=== PATIENT | male | born 1960 | race Caucasian/White ===

== ENCOUNTER 2018-01-23 13:51 | Inpatient (IN) ==
--- NOTE | 2018-01-23 21:34 | P.CONOP ---
[facility] Orthopedics Consult Note - [facility] Consult date: 01/23/18 Requesting physician: Eric Matthew Chief complaint: compartment syndrome left thigh Narrative: This 57-year-old male is referred from [facility] emergency department for evaluation of his left thigh. The patient is on Coumadin therapy for a heart valve. His history is somewhat difficult to obtain as far as his medications etc. and there is limited record available for review. There are several family members at the bedside. The patient apparently fell 3 days ago injuring his thigh region. He had mild to moderate discomfort at that time. His pain increased last night and this morning. He presented to the emergency department there was noted to have lateral compartment swelling. Apparently a compartment pressure measurement was made which was elevated. [facility] was [facility] for further evaluation and management. Patient denies pain at rest. He has pain only when trying to elevate the leg or extend his knee. He denies numbness or tingling. Review of Systems All other systems reviewed negative except as stated in [facility] - History History Provided By: Patient - Medical History Medical History: Medical History (Last Reviewed 01/23/18 @ 21:23 by Elias Morocho MD) Depression Diabetes High cholesterol Hypertension - Surgical History Surgical History: Surgical History (Last Reviewed 01/23/18 @ 21:23 by Elias Morocho MD) Aortic valve replaced - Tobacco History Second Hand Smoke Exposure: No Smoking Status: Never smoker - Alcohol History How Often Do You Have a Drink Containing Alcohol: Never - Substance Use History Substance History: No History of Abuse Medications and Allergies Allergies Allergy/AdvReac Type Severity Reaction Status Date / Time No Known Allergies Allergy Unverified 01/23/18 14:30 Home Medications Medication Instructions Recorded Confirmed Type aspirin [Aspir-Low] 81 mg PO DAILY 01/23/18 01/23/18 History atorvastatin 40 mg PO DAILY 01/23/18 01/23/18 History escitalopram oxalate [Lexapro] 5 mg PO DAILY 01/23/18 01/23/18 History liraglutide [Victoza 2-Derrick] 0.6 mg SUB-Q DAILY 01/23/18 01/23/18 History warfarin [Coumadin] 7.5 mg PO Q OTHER DAY 01/23/18 01/23/18 History warfarin [Coumadin] 10 mg PO Q OTHER DAY 01/23/18 01/23/18 History Exam Narrative: The left lower extremity has mild swelling of the thigh. There are no tense compartments. He has palpable tenderness over the lateral compartment. There is no erythema or increased warmth. He has difficulty with straight leg raise secondary to pain. There is no knee effusion. There is no calf swelling or palpable tenderness. He moves his ankle freely and has good capillary refill and sensation. He has a 2+ posterior tibial pulse. There are no other localizing signs of extremity injury. Assessment and Plan - Problem List (1) Hematoma of left thigh Code(s): S70.12XA - Contusion of left thigh, initial encounter Status: Acute Qualifiers: Encounter type: initial encounter Qualified Code(s): S70.12XA - Contusion of left thigh, initial encounter (2) Anticoagulated on Coumadin Code(s): Z51.81 - Encounter for therapeutic drug level monitoring; Z79.01 - intermediate card tender (current) use of anticoagulants Status: Chronic - Assessment and Plan The findings were discussed. Clinically the patient does not have a compartment syndrome. His swelling is moderate and his distal neurovascular status is normal. He has no pain at rest. Given the fact that he is anticoagulated recommendations are given for period of observation. His INR was reported to be above 3 although not in the medical record at the present time. He has been given fresh frozen plasma and vitamin K. Will obtain a MRI scan of the thigh and if his symptoms progress he understands surgical management might be necessary. Will monitor closely. The patient and his family acknowledge full understanding of the nature of the problem and the plan of treatment and agreed to it.
[2018-01-23] MEDS ORDERED: Morphine Inj 4 MG/ML Vial IV.PUSH PRN (21:37)
[2018-01-23] MEDS ORDERED: Bisacodyl 10 MG Supp RECTAL PRN (21:37)
[2018-01-23] MEDS ORDERED: Temazepam 15 MG Capsule PO PRN (21:37)
[2018-01-23] MEDS ORDERED: Heparin Drip 25,000 UNIT/250 ML BAG IV.CONT PRN (21:40)
[2018-01-23] MEDS: Sod Chloride 0.9% Inj 1,000 ML IV.CONT SCH (22:55)
[2018-01-23 23:41] LABS: Baso % (Auto) 0.3 % (0.0-2.0); Eos # (Auto) 0.2 th/mm3 (0.0-0.4); Eos % (Auto) 2.8 % (0.0-4.0); Hematocrit 35.6 % (39.0-51.0); Hemoglobin 12.2 gm/dL (13.0-17.0); Lymph % (Auto) 17.2 % (9.0-44.0); Mean Corpuscular HGB Conc 34.4 % (32.0-36.0); Mean Corpuscular Hemoglobin 29.3 pg (27.0-34.0); Mean Corpuscular Volume 85.2 fL (80.0-100.0); Mean Platelet Volume 8.4 fL (7.0-11.0); Mono # (Auto) 0.4 th/mm3 (0.0-0.9); Mono % (Auto) 6.7 % (0.0-8.0); Neut # (Auto) 4.1 th/mm3 (1.8-7.7); Platelet Count 192 th/mm3 (150-450); Red Blood Count 4.18 mil/mm3 (4.50-5.90); White Blood Count 5.6 th/mm3 (4.0-11.0)
--- NOTE | 2018-01-23 23:44 | P.HPCC ---
History of Present Illness Primary Care Physician: Bernardo Srinivasan History of Present Illness: 57-year-old male transferred from [facility] emergency department for evaluation of his left thigh. The patient is on Coumadin therapy for a mechanical heart valve. The patient fell 3 days ago injuring his thigh region. He had mild to moderate discomfort at that time. His pain increased last night and this morning. He presented to the emergency department at [place] and there was noted to have lateral compartment swelling. Apparently a compartment pressure measurement was made which was elevated. He was referred to the [facility] for orthopedic consultation for possible compartment syndrome and further evaluation and management. Patient denies pain at rest. He has pain only when trying to elevate the leg or extend his knee. He denies numbness or tingling. Inpatient Certification: I certify that the inpatient services were ordered in accordance with Medicare regulations governing the order. This includes certification that hospital inpatient services are reasonable and necessary and in the case of services not specified as inpatient-only under 42 CFR 419.22(n), that they are appropriately provided as inpatient services in accordance to with the 2-midnight benchmark under 43 CFR 412.3(e) Estimated Total Length of Stay (Days): 5 Plans for Post Hospital Care: Not yet determined Review of Systems All other systems reviewed negative except as stated in [facility] - History History Provided By: Patient - Medical History Medical History: Medical History (Last Reviewed 01/23/18 @ 21:23 by Elias Morocho MD) Depression Diabetes High cholesterol Hypertension - Surgical History Surgical History: Surgical History (Last Reviewed 01/23/18 @ 21:23 by Elias Morocho MD) Aortic valve replaced - Tobacco History Second Hand Smoke Exposure: No Smoking Status: Never smoker - Alcohol History How Often Do You Have a Drink Containing Alcohol: Never - Substance Use History Substance History: No History of Abuse Medications and Allergies Active Medications: Active Medications Acetaminophen (Tylenol) 650 mg PO Q6H PRN PRN Reason: PAIN 1-10 AND/OR FEVER >101F Al Hydroxide/Mg Hydroxide (Milk Of [place] Liq) 30 ml PO Q12H PRN PRN Reason: Mild Constipation Albuterol (Duoneb Neb (Prn)) 1 ampul NEB Q2HR NEB PRN PRN Reason: WHEEZING Aspirin (Ecotrin) 81 mg PO DAILY MARCUS Atorvastatin Calcium (Lipitor) 40 mg PO DAILY MARCUS Bisacodyl (Dulcolax Supp) 10 mg RECTAL DAILY PRN PRN Reason: SEVERE CONSITIPATION Chlorhexidine Gluconate (Chlorhexidine 2% Cloth) 3 pack TOPICAL DAILY@0400 MARCUS Stop: 01/29/18 03:59 Chlorhexidine Gluconate (Chlorhexidine 2% Cloth) 3 pack TOPICAL DAILY@0400 PRN PRN Reason: Extra cloth needed Stop: 01/29/18 03:59 Escitalopram Oxalate (Lexapro) 5 mg PO DAILY [facility] Famotidine (Pepcid Pf Inj) 20 mg IV.PUSH Q12HR [facility] Sodium Chloride (Ns Inj) 1,000 mls @ 84 mls/hr IV.CONT .[id number] [facility] Last Admin: 01/23/18 22:55 Dose: 84 mls/hr Heparin Sodium/Dextrose (Heparin/D5w 25,000 U/250 Ml) 25,000 unit in 250 mls @ 0 mls/hr IV.CONT TITRATE PRN; Protocol PRN Reason: Per Protocol Lactulose (Lactulose Liq) 30 ml PO DAILY PRN PRN Reason: SEVERE CONSITIPATION Metoclopramide HCl (Reglan Inj) 5 mg IV.PUSH Q6HR [facility]; Protocol Morphine Sulfate (Morphine Inj) 2 mg IV.PUSH Q2H PRN PRN Reason: PAIN SCALE 6 TO 10 Ondansetron HCl (Zofran Inj) 4 mg IV.PUSH Q6H PRN PRN Reason: NAUSEA OR VOMITING Liraglutide [Victoza (2-Derrick] 0.6 Mg) 1 each SQ DAILY [facility] Senna/Docusate Sodium (Tanya-Colace) 1 tab PO BID [facility] Sennosides (Senokot) 17.2 mg PO Q12H PRN PRN Reason: Moderate Constipation Sodium Chloride (Ns Flush) 2 ml IV.FLUSH BID [facility] Sodium Chloride (Ns Flush) 2 ml IV.FLUSH PRN PRN PRN Reason: FLUSH AFTER USING IV ACCESS Temazepam (Restoril) 15 mg PO HS PRN PRN Reason: INSOMNIA Allergies Allergy/AdvReac Type Severity Reaction Status Date / Time No Known Allergies Allergy Unverified 01/23/18 14:30 Home Medications Medication Instructions Recorded Confirmed Type aspirin [Aspir-Low] 81 mg PO DAILY 01/23/18 01/23/18 History atorvastatin 40 mg PO DAILY 01/23/18 01/23/18 History escitalopram oxalate [Lexapro] 5 mg PO DAILY 01/23/18 01/23/18 History liraglutide [Victoza 2-Derrick] 0.6 mg SUB-Q DAILY 01/23/18 01/23/18 History warfarin [Coumadin] 7.5 mg PO Q OTHER DAY 01/23/18 01/23/18 History warfarin [Coumadin] 10 mg PO Q OTHER DAY 01/23/18 01/23/18 History Results - Labs CBC & Chem 7: 01/23/18 23:30 01/23/18 23:00 Labs: Short CBC 01/23/18 Range/Units 23:30 WBC 5.6 (4.0-11.0) th/mm3 Hgb 12.2 L (13.0-17.0) gm/dL Hct 35.6 L (39.0-51.0) % Plt Count 192 (150-450) th/mm3 Exam Vital signs: Vital Signs 01/23/18 19:40 01/23/18 23:00 Temperature 98.6 F Pulse Rate 65 64 Respiratory Rate 10 L 15 Blood Pressure 138/76 130/69 Pulse Oximetry 92 L 94 L Intake & Output 01/23/18 01/23/18 01/24/18 06:59 18:59 06:59 Weight 95.1 kg Other: Weight On Admission 95.1 kg - Constitutional no acute distress - Routine HEENT Exam Head: Present: normocephalic, atraumatic Eye: Present: EOMI, PERRL ENT: Present: mucous membranes moist - Routine Neck Exam Present: supple, full ROM. Absent: JVD, carotid bruit - Routine Chest/Breast/Axilla Exam Chest wall: Absent: tenderness, mass - Routine Respiratory Exam Absent: accessory muscle use, rhonchi, stridor, wheezes - Routine Cardiovascular Exam Present: RRR, S1, S2, murmur - Routine Abdominal Exam Present: soft, normoactive bowel sounds. Absent: tenderness, distended - Routine Extremities Exam Comments: The left lower extremity has mild swelling of the thigh. There are no tense compartments. He has palpable tenderness over the lateral compartment. There is no erythema or increased warmth. He has difficulty with straight leg raise secondary to pain. There is no knee effusion. There is no calf swelling or palpable tenderness. He moves his ankle freely and has good capillary refill and sensation. He has a 2+ posterior tibial pulse. There are no other localizing signs of extremity injury. - Routine Skin Exam Present: intact. Absent: cyanosis, erythema - Routine Neurological Exam Present: alert, oriented X3, moving all extremities Caprini VTE Risk Assessment Caprini VTE Risk Assessment: Moderate/High Risk (score >= 2) Caprini Risk Assessment Model: Point Value = 1 Point Value = 2 Point Value = 3 Point Value = 5 Age 41-60 Minor surgery BMI > 25 kg/m2 Swollen legs Varicose veins or History of unexplained or recurrent spontaneous Oral contraceptives or hormone replacement Sepsis (< 1 month) Serious lung disease, including pneumonia (< 1 month) Abnormal pulmonary function Acute myocardial infarction Congestive heart failure (< 1 month) History of inflammatory bowel disease Medical patient at bed rest Age 61-74 Arthroscopic surgery Major open surgery (> 45 min) Laparoscopic surgery (> 45 min) Malignancy Confined to bed (> 72 hours) Immobilizing plaster cast Central venous access Age >= 75 History of VTE Family history of VTE Factor V Leiden Prothrombin [id number] Lupus anticoagulant Anticardiolipin antibodies Elevated serum homocysteine Heparin-induced thrombocytopenia Other congenital or acquired thrombophilia Stroke (< 1 month) Elective arthroplasty Hip, pelvis, or leg fracture Acute spinal cord injury (< 1 month) Prophylaxis Regimen: Total Risk Factor Score Risk Level Prophylaxis Regimen 0-1 Low Early ambulation 2 Moderate Order ONE of the following: *Sequential Compression Device (SCD) *Heparin 5000 units SQ BID 3-4 Higher Order ONE of the following medications: *Heparin 5000 units SQ TID *Enoxaparin/Lovenox 40 mg SQ daily (WT < 150 kg, CrCl > 30 mL/min) *Enoxaparin/Lovenox 30 mg SQ daily (WT < 150 kg, CrCl > 10-29 mL/min) *Enoxaparin/Lovenox 30 mg SQ BID (WT < 150 kg, CrCl > 30 mL/min) AND/OR *Sequential Compression Device (SCD) 5 or more Highest Order ONE of the following medications: *Heparin 5000 units SQ TID (Preferred with Epidurals) *Enoxaparin/Lovenox 40 mg SQ daily (WT < 150 kg, CrCl > 30 mL/min) *Enoxaparin/Lovenox 30 mg SQ daily (WT < 150 kg, CrCl > 10-29 mL/min) *Enoxaparin/Lovenox 30 mg SQ BID (WT < 150 kg, CrCl > 30 mL/min) AND *Sequential Compression Device (SCD) Assessment and Plan - Assessment and Plan Plan: Left thigh injury -No clinical signs of compartment syndrome -Distal neurovascular status is normal -No pain at rest -No surgical intervention indicated at this time -Further management per Dr. Morocho orthopedic surgery Depression -Escitalopram Diabetes -Victoza High cholesterol -Atorvastatin Chronic anticoagulation -Mechanical aortic valve -INR goal 2.5-3.5 -Hold Coumadin in case patient needs a surgical procedure -Initiate bridging therapy with heparin drip -Resume Coumadin when indicated DVT GI prophylaxis -Teds SCDs -Heparin drip -No GI prophylaxis indicated 35 minutes of critical care H&P: Quality - VTE Deep Vein Thrombosis/Pulmonary Embolism Present on Admission: Yes
[2018-01-23 23:57] LABS: Activated Partial Thrombo Time 30.3 sec (24.3-30.1); INR 1.7 Ratio; Prothrombin Time 16.7 sec (9.8-11.6)
[2018-01-24 00:02] LABS: Alanine Aminotransferase 22 U/L (12-78); Albumin 3.6 g/dL (3.4-5.0); Anion Gap 9 meq/L (5-15); Aspartate Aminotransferase 18 U/L (15-37); Blood Urea Nitrogen 11 mg/dL (7-18); Calcium 8.2 mg/dL (8.5-10.1); Carbon Dioxide 28.7 meq/L (21.0-32.0); Chloride 106 meq/L (98-107); Glomerular Filtration Rate 85 mL/min (>89); Glucose,Random 174 mg/dL (74-106); Magnesium 1.6 mg/dL (1.5-2.5); Phosphorus 2.7 mg/dL (2.5-4.9); Potassium 3.5 meq/L (3.5-5.1); Sodium 144 meq/L (136-145)
[2018-01-24 00:04] LABS: Alkaline Phosphatase 48 U/L (45-117); Creatine Kinase 227 U/L (39-308); Total Protein 6.7 g/dL (6.4-8.2)
[2018-01-24 03:45] LABS: Baso % (Auto) 0.6 % (0.0-2.0); Eos # (Auto) 0.2 th/mm3 (0.0-0.4); Hematocrit 34.8 % (39.0-51.0); Hemoglobin 11.7 gm/dL (13.0-17.0); Lymph # (Auto) 0.8 th/mm3 (1.0-4.8); Mean Corpuscular HGB Conc 33.5 % (32.0-36.0); Mean Corpuscular Hemoglobin 28.5 pg (27.0-34.0); Mean Corpuscular Volume 84.9 fL (80.0-100.0); Mean Platelet Volume 7.7 fL (7.0-11.0); Mono # (Auto) 0.4 th/mm3 (0.0-0.9); Mono % (Auto) 9.2 % (0.0-8.0); Neut # (Auto) 2.6 th/mm3 (1.8-7.7); Neut % (Auto) 64.2 % (16.0-70.0); Platelet Count 184 th/mm3 (150-450); Red Cell Distribution Width 14.3 % (11.6-17.2); White Blood Count 4.1 th/mm3 (4.0-11.0)
[2018-01-24 03:56] LABS: Activated Partial Thrombo Time 28.4 sec (24.3-30.1); INR 1.4 Ratio; Prothrombin Time 13.7 sec (9.8-11.6)
[2018-01-24] MEDS ORDERED: Chlorhexidine Gluconate 2% 1 Pack (2 Cloths) TOPICAL PRN (04:00)
[2018-01-24 04:10] LABS: Alanine Aminotransferase 21 U/L (12-78); Albumin 3.3 g/dL (3.4-5.0); Anion Gap 8 meq/L (5-15); Aspartate Aminotransferase 16 U/L (15-37); Calcium 8.2 mg/dL (8.5-10.1); Carbon Dioxide 30.4 meq/L (21.0-32.0); Chloride 106 meq/L (98-107); Glomerular Filtration Rate 89 mL/min (>89); Glucose,Random 164 mg/dL (74-106); Magnesium 1.8 mg/dL (1.5-2.5); Phosphorus 3.4 mg/dL (2.5-4.9); Potassium 3.7 meq/L (3.5-5.1); Sodium 144 meq/L (136-145)
[2018-01-24 04:18] LABS: Alkaline Phosphatase 53 U/L (45-117); Blood Urea Nitrogen 12 mg/dL (7-18); Total Protein 6.4 g/dL (6.4-8.2)
[2018-01-24] MEDS: Chlorhexidine Gluconate 2% 1 Pack (2 Cloths) TOPICAL SCH (05:09)
--- NOTE | 2018-01-24 06:46 | P.PNOP ---
Subjective Interval history: The patient is resting comfortably. Upon awakening he complains of severe pain. It is located over the lateral thigh. He has no other complaint. Physical Exam Vital signs: Vital Signs 01/23/18 19:40 01/23/18 23:00 01/24/18 00:00 Temperature 98.6 F 98.6 F Pulse Rate 65 64 68 Respiratory Rate 10 L 15 24 Blood Pressure 138/76 130/69 116/67 Pulse Oximetry 92 L 94 L 92 L 01/24/18 01:00 01/24/18 02:00 01/24/18 03:00 Temperature Pulse Rate 66 64 64 Respiratory Rate 17 25 H 25 H Blood Pressure 128/75 133/72 135/72 Pulse Oximetry 93 L 92 L 92 L 01/24/18 04:00 01/24/18 05:00 01/24/18 06:00 Temperature 98.6 F 98.5 F Pulse Rate 62 62 62 Respiratory Rate 16 16 12 Blood Pressure 145/76 H 145/76 H 148/80 H Pulse Oximetry 95 95 95 Intake & Output 01/23/18 01/23/18 01/24/18 06:59 18:59 06:59 Intake Total 480 / 480 Output Total 650 / 650 Balance -170 / -170 Weight 95.401 kg Intake: Oral 480 / 480 Output: Urine 650 / 650 Other: Weight On Admission 95.1 kg Narrative: There is mild to moderate left thigh swelling over the lateral aspect. It is painful to palpation. Medially and posteriorly there is no pain in the compartments are soft. There is no palpable tenderness about the knee. There is no swelling of the calf. Neurologically no focal deficit. He has good pulses distally. - Constitutional no acute distress Results - Labs CBC & Chem 7: 01/24/18 03:32 01/24/18 03:32 Laboratory Results - last 24 hr 01/23/18 01/23/18 01/23/18 22:00 23:00 23:00 WBC RBC Hgb Hct MCV MCH MCHC RDW Plt Count MPV Neut % (Auto) Lymph % (Auto) [place] % (Auto) Eos % (Auto) Baso % (Auto) Neut # (Auto) Lymph # (Auto) [place] # (Auto) Eos # (Auto) Baso # (Auto) WBC Differential Differential Comment PT 16.7 H D INR 1.7 APTT 30.3 H D Sodium 144 Potassium 3.5 Chloride 106 Carbon Dioxide 28.7 Anion Gap 9 BUN 11 Creatinine 0.91 Estimated GFR 85 L Random Glucose 174 H Lactic Acid Calcium 8.2 L Phosphorus 2.7 Magnesium 1.6 Total Bilirubin 0.5 AST 18 ALT 22 Alkaline Phosphatase 48 Total Creatine Kinase 227 Total Protein 6.7 Albumin 3.6 Nasal Screen MRSA (PCR) Not detected 01/23/18 01/23/18 01/24/18 23:10 23:30 03:32 WBC 5.6 4.1 RBC 4.18 L 4.10 L Hgb 12.2 L 11.7 L Hct 35.6 L 34.8 L MCV 85.2 84.9 MCH 29.3 28.5 MCHC 34.4 33.5 RDW 14.0 14.3 Plt Count 192 184 MPV 8.4 7.7 Neut % (Auto) 73.0 H 64.2 Lymph % (Auto) 17.2 20.0 [place] % (Auto) 6.7 9.2 H Eos % (Auto) 2.8 6.0 H Baso % (Auto) 0.3 0.6 Neut # (Auto) 4.1 2.6 Lymph # (Auto) 1.0 0.8 L [place] # (Auto) 0.4 0.4 Eos # (Auto) 0.2 0.2 Baso # (Auto) 0.0 0.0 WBC Differential . . Differential Comment Auto diff final Auto diff final PT INR APTT Sodium Potassium Chloride Carbon Dioxide Anion Gap BUN Creatinine Estimated GFR Random Glucose Lactic Acid 2.0 Calcium Phosphorus Magnesium Total Bilirubin AST ALT Alkaline Phosphatase Total Creatine Kinase Total Protein Albumin Nasal Screen MRSA (PCR) 01/24/18 01/24/18 01/24/18 03:32 03:32 03:32 WBC RBC Hgb Hct MCV MCH MCHC RDW Plt Count MPV Neut % (Auto) Lymph % (Auto) [place] % (Auto) Eos % (Auto) Baso % (Auto) Neut # (Auto) Lymph # (Auto) [place] # (Auto) Eos # (Auto) Baso # (Auto) WBC Differential Differential Comment PT 13.7 H INR 1.4 APTT 28.4 Sodium 144 Potassium 3.7 Chloride 106 Carbon Dioxide 30.4 Anion Gap 8 BUN 12 Creatinine 0.88 Estimated GFR 89 Random Glucose 164 H Lactic Acid 1.2 Calcium 8.2 L Phosphorus 3.4 Magnesium 1.8 Total Bilirubin 0.4 AST 16 ALT 21 Alkaline Phosphatase 53 Total Creatine Kinase Total Protein 6.4 Albumin 3.3 L Nasal Screen MRSA (PCR) Assessment and Plan - Problem List (1) Hematoma of left thigh Code(s): S70.12XA - Contusion of left thigh, initial encounter Status: Acute Qualifiers: Encounter type: initial encounter Qualified Code(s): S70.12XA - Contusion of left thigh, initial encounter - Assessment and Plan The findings were discussed. Clinically the patient does not have a compartment syndrome. His swelling is moderate and his distal neurovascular status is normal. He has no pain at rest. The patient's family are under the impression he needs surgical management. His coagulation studies at the present time have nearly normalized. We will hold Coumadin and proceed with fasciotomy. The nature of the procedure, the risks, expected benefits, as well as the postoperative expectations were discussed with him in detail. In addition, the alternatives to treatment and risks of same were discussed. He understands that this now may require multiple procedures including skin grafting and increased risk of complications related to his comorbidities was discussed and they acknowledged understanding and wished to proceed.
[2018-01-24] MEDS ORDERED: Dextrose 50% in Water 50 ML Vial IV.PUSH PRN (08:25)
[2018-01-24] MEDS ORDERED: Liraglutide [Victoza 2-Pak] 0.6 MG SQ SCH (09:00)
[2018-01-24] MEDS ORDERED: Morphine Inj 4 MG/ML Vial IV.PUSH PRN (09:11)
[2018-01-24] MEDS ORDERED: Potassium Chlor 10 mEq Premix 10 MEQ/100 ML PIGGYBACK IV.SIG ONE (09:15)
--- NOTE | 2018-01-24 09:19 | P.PNCC ---
Subjective Subjective Remarks/Hospital Course: 57-year-old male transferred from [facility] emergency department for evaluation of his left thigh. The patient is on Coumadin therapy for a mechanical heart valve. The patient fell 3 days ago injuring his thigh region. He had mild to moderate discomfort at that time. His pain increased last night and this morning. He presented to the emergency department at [place] and there was noted to have lateral compartment swelling. Apparently a compartment pressure measurement was made which was elevated. He was referred to the main hospital for orthopedic consultation for possible compartment syndrome and further evaluation and management. Patient denies pain at rest. He has pain only when trying to elevate the leg or extend his knee. He denies numbness or tingling. Subjective 01/24: Afebrile. Per Dr. Morocho note plan for OR today for left thigh hematoma. Received 2 FFP overnight. INR currently 1.4 from 3.9. Hemoglobin stable 11.7. Denies chest pain or shortness of breath. Objective Vital Signs / I&O: Vital Signs 01/23/18 19:40 01/23/18 23:00 01/24/18 00:00 Temperature 98.6 F 98.6 F Pulse Rate 65 64 68 Respiratory Rate 10 L 15 24 Blood Pressure 138/76 130/69 116/67 Pulse Oximetry 92 L 94 L 92 L 01/24/18 01:00 01/24/18 02:00 01/24/18 03:00 Temperature Pulse Rate 66 64 64 Respiratory Rate 17 25 H 25 H Blood Pressure 128/75 133/72 135/72 Pulse Oximetry 93 L 92 L 92 L 01/24/18 04:00 01/24/18 05:00 01/24/18 06:00 Temperature 98.6 F 98.5 F Pulse Rate 62 62 62 Respiratory Rate 16 16 12 Blood Pressure 145/76 H 145/76 H 148/80 H Pulse Oximetry 95 95 95 Intake & Output 01/23/18 01/24/18 01/24/18 18:59 06:59 18:59 Intake Total 480 / 480 Output Total 650 / 650 Balance -170 / -170 Weight 95.401 kg Intake: Oral 480 / 480 Output: Urine 650 / 650 Other: Weight On Admission 95.1 kg Result Diagrams: 01/24/18 03:32 01/24/18 03:32 Objective Remarks: GENERAL: 57-year-old male currently resting in bed in no mild pain distress SKIN: Warm and dry. Chronic venous stasis bilateral lower extremities. HEAD: Atraumatic. Normocephalic. EYES: Pupils equal and round about 3 mm bilaterally and reactive. No scleral icterus. No injection or drainage. ENT: No nasal bleeding or discharge. Mucous membranes pink and moist. NECK: Trachea midline. No JVD. CARDIOVASCULAR: Regular rate and rhythm. S1, S2 no S4. Positive click RESPIRATORY: No accessory muscle use. Clear to auscultation. Breath sounds equal bilaterally. GASTROINTESTINAL: Abdomen soft, non-tender, nondistended. Hepatic and splenic margins not palpable. MUSCULOSKELETAL: Extremities/left lower extremity/thigh above-knee firm with pain. Dorsalis pedis and posterior tibialis palpable bilaterally NEUROLOGICAL: Awake and alert. No obvious cranial nerve deficits. Motor grossly within normal limits. Five out of 5 muscle strength in the arms and legs. Normal speech. PSYCHIATRIC: Appropriate mood and affect; insight and judgment normal. Assessment and Plan - Assessment and Plan Plan: Neuro/Psych: Acute pain management Depression Acetaminophen 650 mg p.o. every 6 hours as needed for Morphine sulfate 2-4 mg IV every 4 2 hours as needed pain Continue escitalopram 5 mg daily for depression. CV: Coronary artery disease Hyperlipidemia History of [facility]'s mechanical aortic valve/self-reported History of thoracic aortic aneurysm 4.7 cm? EKG pending Holding aspirin 81 mg daily Continue with atorvastatin 40 mg daily/home medication for dyslipidemia Currently not on any antihypertensives Resp: Nasal cannula to maintain saturations greater than or equal to 92% Incentive spirometry while awake As needed albuterol aerosols every 2 hours as needed dyspnea Follow-up on chest x-ray GI: Hypoalbuminemia Currently n.p.o. Currently on famotidine twice daily Docusate sodium/senna 1 tablet twice daily for bowel regimen : No indication for [place] catheter Endo: Sliding scale insulin with Accu-Cheks to maintain euglycemia every 6 hours Holding liraglutide 0.6 mg/0.1 mL subcu daily Renal: Creatinine currently within normal limits Monitor urine output Accurate I's and O's Heme: Normocytic anemia Chronic warfarin use secondary to mechanical AV valve. On 7.5/10 mg alternating dosages daily INR was 3.9 on admission. Currently 1.4 received 2 FFP. Recheck CBC and INR in a.m. 9/4 We will need to discuss orthopedics resumption of anticoagulation due to mechanical aortic valve. Hold for now ID: Monitor for signs and symptomatology infection MSK: Left thigh hematoma Elevated BMI Weight loss encouraged Evaluated by Dr. Morocho. Plan for OR today at 1030 Check x-ray right hand FEN: Receiving 30 mEq potassium chloride and 2 g mag sulfate IV 1 now. Recheck in a.m. Access -Utilize peripheral IV. Central line if indicated Prophylaxis -GI -famotidine - -SCD/holding anticoagulation pharmacological secondary to hematoma Level 2 follow-up discussed with
--- NOTE | 2018-01-24 09:51 | XR ---
EXAM DATE: 01/24/2018 9:35 AM EDT AGE/SEX: 57 years / Male INDICATIONS: Pre-operative for possible lower leg fasciotomy. CLINICAL DATA: This is the patient's initial encounter. Patient reports that signs and symptoms have been present for 1 day and indicates a pain score of 0/10. MEDICAL/SURGICAL HISTORY: . Sleep apnea. . Loop recorder. Aortic valve replacement. COMPARISON: No prior exams available for comparison. FINDINGS: Sternotomy wires and aortic valve prosthesis noted. Lungs are clear with minimal linear atelectasis i n the right midlung. Osseous structures are intact. CONCLUSION: Near atelectasis right midlung. Electronically signed by: Yair Sosa MD 01/24/2018 9:49 AM EDT
[2018-01-24] MEDS ORDERED: Lidocaine PF 1% Inj 5 ML Syringe INFILTRATN ONE (10:21)
[2018-01-24] MEDS ORDERED: Glycopyrrolate Inj 1 MG/5 ML Syringe IV.PUSH ONE (10:21)
[2018-01-24] MEDS ORDERED: Phenylephrine/NS 1000 MCG/10ML Syringe IV.PUSH ONE (10:21)
[2018-01-24] MEDS ORDERED: Povidone Iodine 10% Top Soln 118 ML Bottle TOPICAL PRN (11:35)
[2018-01-24] MEDS ORDERED: Post-op Orders (for Pharmacy) OTHER STA (11:35)
--- NOTE | 2018-01-24 11:35 | P.OP ---
- Preoperative Diagnosis (1) Hematoma of left thigh (2) Anticoagulated on Coumadin (3) Compartment syndrome of thigh - Postoperative Diagnosis (1) Hematoma of left thigh Date of procedure: 01/24/18 Procedure: Left thigh lateral compartment fasciotomy Surgeon: Elias Morocho MD Janitorial Account Manager: OR staff Estimated blood loss (mL): 50 Pathology: none sent Operation and Findings: Indications: This 57-year-old male who has been anticoagulated secondary to a heart valve fell 3 days ago injuring his thigh region. The patient had mild discomfort and swelling at that time. This did increase yesterday and he presented to [facility] emergency department. There was concern with regards to a compartment syndrome. Apparently measurements were made which revealed elevated pressures there. He was transferred to the main hospital for further evaluation and management. His evaluation was not consistent with a compartment syndrome however, he did have pain which seems somewhat out of proportion to the clinical exam. This persisted today. His coagulation studies have been normalized and he presents for fasciotomy understanding the alternatives to treatment and risks and benefits of both. Procedure and findings: The patient was taken to the operative suite and after undergoing an adequate level of general anesthesia was placed in the lateral excuse position on the operating table. Examination revealed mild swelling of the lateral compartment. It was not tense. The anterior medial and posterior compartments were soft. He had good pulses distally. A pressure measurement was completed utilizing a Outski device. His diastolic blood pressure was 60 mmHg. The lateral compartment pressure measurement was 25 with the anterior posterior and medial being 10-12. The left lower extremity was prepped and draped in usual sterile fashion with alcohol and Hibiclens. A longitudinal incision was made over the lateral thigh extending from the knee. This was carried out through skin subtenons tissue with a knife. Hemostasis was obtained electrocautery. The iliotibial band was identified and split longitudinally. The vastus lateralis fascia was incised. There was swelling of the muscle however it was contractile and well vascularized and viable. There is no significant bleeding or hematoma collection. Utilizing a Metzenbaum scissors the fasciotomy was extended proximally. Using a dissecting finger of the muscle was freed from the overlying fascia on the anterior and posterior aspects. Wound was then thoroughly irrigated. Hemovac drain was left in place. The skin was closed in layers utilizing 2-0 Vicryl suture in the subtenons tissue and 2-0 nylon on the skin. Sterile dressings were applied , the patient was awakened, transferred to the hospital stretcher and taken to the recovery room in stable condition.
[2018-01-24] MEDS ORDERED: fentaNYL Citrate Inj 100 MCG/2 ML Ampul ONE (11:51)
[2018-01-24] MEDS ORDERED: *morphine SULFATE 4 MG/ML PERIprocedure ONLY ONE (12:05)
[2018-01-24] MEDS: Insulin NovoLOG Aspart Correctional Sugar Inj SQ SCH ×2 (12:10→17:41)
[2018-01-24] MEDS ORDERED: *Ondansetron Inj 4 MG/2 ML Vial PERIprocedural Use ONLY ONE (12:23)
[2018-01-24] MEDS: Mag Sulf 1 gm/100 ml Premix 100 ML IV.SIG SCH ×2 (12:50→14:31)
[2018-01-24] MEDS: Senna/Docusate Sodium 8.6/50 MG Tablet PO SCH ×2 (12:51→21:25)
[2018-01-24] MEDS: Famotidine PF Inj 20 MG/2 ML Vial IV.PUSH SCH ×2 (12:51→21:25)
--- NOTE | 2018-01-24 12:51 | ECG ---
Date Performed: 01/24/2018 Time Performed: 09:42:42 PTAGE: 57 years EKG: Possible ectopic atrial rhythm with PVC(s) Diffuse ST segment elevation most consistent wit h early repolarization, but there is NO PREVIOUS TRACING , so clinical correlation is advised. Borderline ECG NO PREVIOUS BECCA NG DOCTOR: Eboni Lux Interpretating Date/Time 01/24/2018 12:49:08
[2018-01-24] MEDS: Sod Chloride 0.9% Inj 1,000 ML IV.CONT SCH ×2 (12:52→23:36)
[2018-01-24] MEDS: Escitalopram 10 MG Tablet PO SCH (12:53)
--- NOTE | 2018-01-24 13:33 | XR ---
EXAM DATE: 01/24/2018 1:30 PM EDT AGE/SEX: 57 years / Male INDICATIONS: Right entire hand pain with no known trauma CLINICAL DATA: This is the patient's initial encounter. Patient reports that signs and symptoms have been present for 1 day and indicates a pain score of 3/10. MEDICAL/SURGICAL HISTORY: None. None. COMPARISON: No prior exams available for comparison. FINDINGS: Bony structures are intact and in normal alignment. Osseous density is normal. Soft tissues are unre markable. No radiopaque foreign bodies seen. CONCLUSION: No evidence of recent bony injury. Electronically signed by: Yair Sosa MD 01/24/2018 1:32 PM EDT
--- NOTE | 2018-01-24 15:15 | P.PCN ---
Date of procedure: 01/24/18 Pre-op diagnosis: Shock Post-op diagnosis: same Procedure: US guided right femoral arterial line placement Patient needs invasive hemodynamic monitoring. Full sterile and barrier precautions were used. The right femoral region was prepped using chlorhexidine scrub and draped in sterile fashion. The introducer needle was inserted into the femoral artery with good arterial flash obtained. A guidewire was advanced into the introducer needle. After this introducer needle removed and a 20- gauge 16 cm arterial line was introduced into the femoral artery and good wave form obtained. The wire was removed and the catheter was sutured in place at 16 cm. A sterile central line dressing was placed over the catheter at the insertion site. The patient tolerated the procedure well. Anesthesia: local Surgeon: Nathaly Salazar Estimated blood loss (mL): 2 Pathology: none sent Condition: critical Disposition: ICU
[2018-01-24] MEDS: Morphine Sulfate Inj 2 MG/ML Vial IV.PUSH PRN ×2 (15:53→21:26)
[2018-01-25] MEDS: Insulin NovoLOG Aspart Correctional Sugar Inj SQ SCH ×4 (00:38→22:02)
[2018-01-25 03:53] LABS: Baso % (Auto) 0.3 % (0.0-2.0); Eos # (Auto) 0.1 th/mm3 (0.0-0.4); Eos % (Auto) 1.3 % (0.0-4.0); Hematocrit 32.7 % (39.0-51.0); Lymph # (Auto) 0.8 th/mm3 (1.0-4.8); Lymph % (Auto) 14.1 % (9.0-44.0); Mean Corpuscular HGB Conc 33.7 % (32.0-36.0); Mean Corpuscular Hemoglobin 28.5 pg (27.0-34.0); Mean Corpuscular Volume 84.5 fL (80.0-100.0); Mean Platelet Volume 8.3 fL (7.0-11.0); Mono # (Auto) 0.5 th/mm3 (0.0-0.9); Mono % (Auto) 9.5 % (0.0-8.0); Neut # (Auto) 4.1 th/mm3 (1.8-7.7); Neut % (Auto) 74.8 % (16.0-70.0); Platelet Count 188 th/mm3 (150-450); Red Blood Count 3.87 mil/mm3 (4.50-5.90); White Blood Count 5.5 th/mm3 (4.0-11.0)
[2018-01-25 04:02] LABS: Activated Partial Thrombo Time 24.7 sec (24.3-30.1); INR 1.1 Ratio; Prothrombin Time 10.7 sec (9.8-11.6)
[2018-01-25 04:12] LABS: Alanine Aminotransferase 19 U/L (12-78); Albumin 3.1 g/dL (3.4-5.0); Anion Gap 8 meq/L (5-15); Aspartate Aminotransferase 12 U/L (15-37); Blood Urea Nitrogen 9 mg/dL (7-18); Calcium 7.9 mg/dL (8.5-10.1); Carbon Dioxide 28.8 meq/L (21.0-32.0); Chloride 106 meq/L (98-107); Glomerular Filtration Rate Greater Than 89 mL/min (>89); Glucose,Random 122 mg/dL (74-106); Magnesium 2.3 mg/dL (1.5-2.5); Phosphorus 2.8 mg/dL (2.5-4.9); Potassium 4.2 meq/L (3.5-5.1); Sodium 143 meq/L (136-145)
[2018-01-25 04:15] LABS: Alkaline Phosphatase 44 U/L (45-117); Total Protein 6.4 g/dL (6.4-8.2)
[2018-01-25] MEDS: Chlorhexidine Gluconate 2% 1 Pack (2 Cloths) TOPICAL SCH (06:15)
[2018-01-25] MEDS: Acetaminophen 325 MG Tablet PO PRN ×2 (06:16→16:15)
[2018-01-25] MEDS: Famotidine PF Inj 20 MG/2 ML Vial IV.PUSH SCH ×2 (08:26→20:53)
[2018-01-25] MEDS: Morphine Sulfate Inj 2 MG/ML Vial IV.PUSH PRN ×2 (08:26→16:15)
[2018-01-25] MEDS: Senna/Docusate Sodium 8.6/50 MG Tablet PO SCH ×2 (08:26→20:54)
[2018-01-25] MEDS: Escitalopram 10 MG Tablet PO SCH (08:26)
--- NOTE | 2018-01-25 09:52 | P.PNOP ---
Subjective Interval history: POD #1 Left thigh lateral compartment fasciotomy Pt is awake and alert. Stable. Family at bedside. Physical Exam Vital signs: Vital Signs 01/24/18 11:43 01/24/18 11:45 01/24/18 12:00 Temperature 97.5 F L Pulse Rate 112 H 104 H 100 H Respiratory Rate 20 19 17 Blood Pressure 140/86 131/79 141/80 H Pulse Oximetry 96 95 95 01/24/18 12:15 01/24/18 12:30 01/24/18 12:40 Temperature 97.9 F Pulse Rate 81 80 82 Respiratory Rate 15 16 15 Blood Pressure 116/69 130/76 123/72 Pulse Oximetry 96 97 94 L 01/24/18 16:00 01/24/18 19:24 01/24/18 20:00 Temperature 97.9 F 98.6 F Pulse Rate 70 67 Respiratory Rate 11 L 13 Blood Pressure 107/60 100/60 Pulse Oximetry 98 93 L 01/25/18 00:00 01/25/18 04:00 01/25/18 07:50 Temperature 98.6 F 98.3 F Pulse Rate 56 L 54 L Respiratory Rate 10 L 18 Blood Pressure 108/61 110/63 Pulse Oximetry 94 L 94 L 97 01/25/18 08:00 Temperature 97.8 F Pulse Rate 52 L Respiratory Rate 24 Blood Pressure 117/66 Pulse Oximetry 96 Intake & Output 01/24/18 01/25/18 01/25/18 18:59 06:59 18:59 Intake Total 3150 / 3150 2240 / 2240 Output Total 650 / 650 500 / 500 Balance 2500 / 2500 1740 / 1740 Weight 96.8 kg Intake: IV 1100 / 1100 2000 / 2000 LR 1000 mL Inj 1,000 ML @ 100 1000 / 1000 mls/hr IV.CONT .Q10H [facility] Rx#: [id number] NS Inj 1,000 ML @ 84 mls/hr IV. 1000 / 1000 1000 / 1000 CONT .[id number] [facility] Rx#:[id number] Magnesium Sulfate 1 gm/D5W 100 100 / 100 ml Premix 100 ML @ 100 mls/hr IV.SIG Q1H [facility] Rx#:[id number] Oral 750 / 750 240 / 240 Anesthesia Amount 1300 / 1300 Output: Urine 600 / 600 500 / 500 Estimated Blood Loss 50 / 50 Other: # Voids 2 3 # Incontinent Voids 1 Narrative: LLE: Dressing dry and intact. Tender to palpation with mild swelling around incision site. Swelling has decreased. Appropriate range of motion expected post operatively. Freely able to move distal digits. No calf pain. Negative Jacoby's sign. Good cap refill. 2+ pedal pulses. Neurovascular intact. Results - Labs CBC & Chem 7: 01/25/18 03:08 01/25/18 03:08 Laboratory Results - last 24 hr 01/24/18 01/24/18 01/24/18 09:28 09:28 11:49 WBC RBC Hgb Hct MCV MCH MCHC RDW Plt Count MPV Neut % (Auto) Lymph % (Auto) [place] % (Auto) Eos % (Auto) Baso % (Auto) Neut # (Auto) Lymph # (Auto) [place] # (Auto) Eos # (Auto) Baso # (Auto) WBC Differential Differential Comment PT INR APTT Sodium Potassium Chloride Carbon Dioxide Anion Gap BUN Creatinine Estimated GFR POC Glucose 167 H Random Glucose Lactic Acid 0.9 Calcium Phosphorus Magnesium Total Bilirubin AST ALT Alkaline Phosphatase Total Creatine Kinase 219 Total Protein Albumin 01/24/18 01/24/18 01/25/18 17:24 17:34 00:20 WBC RBC Hgb 11.8 L Hct MCV MCH MCHC RDW Plt Count MPV Neut % (Auto) Lymph % (Auto) [place] % (Auto) Eos % (Auto) Baso % (Auto) Neut # (Auto) Lymph # (Auto) [place] # (Auto) Eos # (Auto) Baso # (Auto) WBC Differential Differential Comment PT INR APTT Sodium Potassium Chloride Carbon Dioxide Anion Gap BUN Creatinine Estimated GFR POC Glucose 233 H 160 H Random Glucose Lactic Acid Calcium Phosphorus Magnesium Total Bilirubin AST ALT Alkaline Phosphatase Total Creatine Kinase Total Protein Albumin 01/25/18 01/25/18 01/25/18 03:08 03:08 03:08 WBC 5.5 RBC 3.87 L Hgb 11.0 L Hct 32.7 L MCV 84.5 MCH 28.5 MCHC 33.7 RDW 14.0 Plt Count 188 MPV 8.3 Neut % (Auto) 74.8 H Lymph % (Auto) 14.1 [place] % (Auto) 9.5 H Eos % (Auto) 1.3 Baso % (Auto) 0.3 Neut # (Auto) 4.1 Lymph # (Auto) 0.8 L [place] # (Auto) 0.5 Eos # (Auto) 0.1 Baso # (Auto) 0.0 WBC Differential . Differential Comment Auto diff final PT 10.7 INR 1.1 APTT 24.7 Sodium 143 Potassium 4.2 Chloride 106 Carbon Dioxide 28.8 Anion Gap 8 BUN 9 Creatinine 0.77 Estimated GFR Greater than 89 POC Glucose Random Glucose 122 H Lactic Acid Calcium 7.9 L Phosphorus 2.8 Magnesium 2.3 Total Bilirubin 0.4 AST 12 L ALT 19 Alkaline Phosphatase 44 L Total Creatine Kinase Total Protein 6.4 Albumin 3.1 L 01/25/18 01/25/18 06:22 08:04 WBC RBC Hgb Hct MCV MCH MCHC RDW Plt Count MPV Neut % (Auto) Lymph % (Auto) [place] % (Auto) Eos % (Auto) Baso % (Auto) Neut # (Auto) Lymph # (Auto) [place] # (Auto) Eos # (Auto) Baso # (Auto) WBC Differential Differential Comment PT INR APTT Sodium Potassium Chloride Carbon Dioxide Anion Gap BUN Creatinine Estimated GFR POC Glucose 137 H 128 H Random Glucose Lactic Acid Calcium Phosphorus Magnesium Total Bilirubin AST ALT Alkaline Phosphatase Total Creatine Kinase Total Protein Albumin Microbiology 01/23/18 23:10 Blood - Peripheral Aerobic Blood Culture - Preliminary No growth in 1 day 01/23/18 23:10 Blood - Peripheral Anaerobic Blood Culture - Preliminary No growth in 1 day 01/23/18 23:00 Blood - Peripheral Aerobic Blood Culture - Preliminary No growth in 1 day 01/23/18 23:00 Blood - Peripheral Anaerobic Blood Culture - Preliminary No growth in 1 day - Imaging Impressions Chest X-Ray 01/24/18 00:00 CONCLUSION: Near atelectasis right midlung. Hand X-Ray 01/24/18 00:00 CONCLUSION: No evidence of recent bony injury. - Procedures Left thigh lateral compartment fasciotomy 01/24/18 Assessment and Plan - Problem List (1) Hematoma of left thigh Code(s): S70.12XA - Contusion of left thigh, initial encounter Status: Acute Qualifiers: Encounter type: initial encounter Qualified Code(s): S70.12XA - Contusion of left thigh, initial encounter - Assessment and Plan POD #1 Left thigh lateral compartment fasciotomy Ortho status stable Ok to resume Coumadin for DVT prophylaxis No change dressing D/C drain on POD #2 Progress rehab, w/b as tolerated. Discharge planning, HHC vs rehab.
--- NOTE | 2018-01-25 11:11 | P.PNCC ---
Subjective Subjective Remarks/Hospital Course: 57-year-old male transferred from [facility] emergency department for evaluation of his left thigh. The patient is on Coumadin therapy for a mechanical heart valve. The patient fell 3 days ago injuring his thigh region. He had mild to moderate discomfort at that time. His pain increased last night and this morning. He presented to the emergency department at [facility] and there was noted to have lateral compartment swelling. Apparently a compartment pressure measurement was made which was elevated. He was referred to the main hospital for orthopedic consultation for possible compartment syndrome and further evaluation and management. Patient denies pain at rest. He has pain only when trying to elevate the leg or extend his knee. He denies numbness or tingling. Subjective 01/24: Afebrile. Per Dr. Morocho note plan for OR today for left thigh hematoma. Received 2 FFP overnight. INR currently 1.4 from 3.9. Hemoglobin stable 11.7. Denies chest pain or shortness of breath. 01/25: Resting comfortably. Underwent fasciotomy for left eye hematoma yesterday. Orthopedics okay with resuming Coumadin and transfer to floor. Drain remains in place with minimal drainage. Objective Vital Signs / I&O: Vital Signs 01/24/18 11:43 01/24/18 11:45 01/24/18 12:00 Temperature 97.5 F L Pulse Rate 112 H 104 H 100 H Respiratory Rate 20 19 17 Blood Pressure 140/86 131/79 141/80 H Pulse Oximetry 96 95 95 01/24/18 12:15 01/24/18 12:30 01/24/18 12:40 Temperature 97.9 F Pulse Rate 81 80 82 Respiratory Rate 15 16 15 Blood Pressure 116/69 130/76 123/72 Pulse Oximetry 96 97 94 L 01/24/18 16:00 01/24/18 19:24 01/24/18 20:00 Temperature 97.9 F 98.6 F Pulse Rate 70 67 Respiratory Rate 11 L 13 Blood Pressure 107/60 100/60 Pulse Oximetry 98 93 L 01/25/18 00:00 01/25/18 04:00 01/25/18 07:50 Temperature 98.6 F 98.3 F Pulse Rate 56 L 54 L Respiratory Rate 10 L 18 Blood Pressure 108/61 110/63 Pulse Oximetry 94 L 94 L 97 01/25/18 08:00 Temperature 97.8 F Pulse Rate 52 L Respiratory Rate 24 Blood Pressure 117/66 Pulse Oximetry 96 Intake & Output 01/24/18 01/25/18 01/25/18 18:59 06:59 18:59 Intake Total 3150 / 3150 2240 / 2240 Output Total 650 / 650 500 / 500 Balance 2500 / 2500 1740 / 1740 Weight 96.8 kg Intake: IV 1100 / 1100 2000 / 2000 LR 1000 mL Inj 1,000 ML @ 100 1000 / 1000 mls/hr IV.CONT .Q10H [facility] Rx#: [id number] NS Inj 1,000 ML @ 84 mls/hr IV. 1000 / 1000 1000 / 1000 CONT .[id number] [facility] Rx#:[id number] Magnesium Sulfate 1 gm/D5W 100 100 / 100 ml Premix 100 ML @ 100 mls/hr IV.SIG Q1H [facility] Rx#:[id number] Oral 750 / 750 240 / 240 Anesthesia Amount 1300 / 1300 Output: Urine 600 / 600 500 / 500 Estimated Blood Loss 50 / 50 Other: # Voids 2 3 # Incontinent Voids 1 Result Diagrams: 01/25/18 03:08 01/25/18 03:08 Objective Remarks: GENERAL: 57-year-old male currently resting in bed in no mild pain distress SKIN: Warm and dry. Chronic venous stasis bilateral lower extremities. HEAD: Atraumatic. Normocephalic. EYES: Pupils equal and round about 3 mm bilaterally and reactive. No scleral icterus. No injection or drainage. ENT: No nasal bleeding or discharge. Mucous membranes pink and moist. NECK: Trachea midline. No JVD. CARDIOVASCULAR: Regular rate and rhythm. S1, S2 no S4. Positive click RESPIRATORY: No accessory muscle use. Clear to auscultation. Breath sounds equal bilaterally. GASTROINTESTINAL: Abdomen soft, non-tender, nondistended. Hepatic and splenic margins not palpable. MUSCULOSKELETAL: Dressing over left thigh fasciotomy site with drain in place, soft, expected tenderness postoperatively. Distal pulses well felt. NEUROLOGICAL: Awake and alert. No obvious cranial nerve deficits. Motor grossly within normal limits. Five out of 5 muscle strength in the arms and legs. Normal speech. PSYCHIATRIC: Appropriate mood and affect; insight and judgment normal. Assessment and Plan - Assessment and Plan Plan: Neuro/Psych: Acute pain management Depression Acetaminophen 650 mg p.o. every 6 hours as needed for Morphine sulfate 2-4 mg IV every 4 2 hours as needed pain Continue escitalopram 5 mg daily for depression. CV: Coronary artery disease Hyperlipidemia History of [facility]'s mechanical aortic valve/self-reported History of thoracic aortic aneurysm 4.7 cm? EKG pending Holding aspirin 81 mg daily Continue with atorvastatin 40 mg daily/home medication for dyslipidemia Currently not on any antihypertensives Resp: Nasal cannula to maintain saturations greater than or equal to 92% Incentive spirometry while awake As needed albuterol aerosols every 2 hours as needed dyspnea Follow-up on chest x-ray GI: Hypoalbuminemia Currently n.p.o. Currently on famotidine twice daily Docusate sodium/senna 1 tablet twice daily for bowel regimen : No indication for [place] catheter Endo: Sliding scale insulin with Accu-Cheks to maintain euglycemia every 6 hours Holding liraglutide 0.6 mg/0.1 mL subcu daily Renal: Creatinine currently within normal limits Monitor urine output Accurate I's and O's Heme: Normocytic anemia Chronic warfarin use secondary to mechanical AV valve. On 7.5/10 mg alternating dosages daily Status post 2 units FFP to correct INR preoperatively on 01/24 Orthopedics okay with resumption of anticoagulation due to mechanical aortic valve. Reorder Coumadin home dose. Check daily INR ID: Monitor for signs and symptomatology infection MSK: Left thigh hematoma Elevated BMI Weight loss encouraged Evaluated by Dr. Morocho. Status post left thigh fasciotomy on 01/[address] Morocho. Check x-ray right hand FEN: Monitor and replete electrolytes Access -Utilize peripheral IV. Central line if indicated Prophylaxis -GI -famotidine - -SCD/resume Coumadin - okay with orthopedics. Level 2 follow-up discussed with . Consult and transfer to hospitalist service for further medical management. Transfer out of ICU. Critical care signing off, please reconsult if needed.
[2018-01-25] MEDS: Sod Chloride 0.9% Inj 1,000 ML IV.CONT SCH ×2 (16:13→22:03)
[2018-01-26] MEDS: Chlorhexidine Gluconate 2% 1 Pack (2 Cloths) TOPICAL SCH (05:51)
[2018-01-26 08:15] LABS: Hematocrit 34.4 % (39.0-51.0); Hemoglobin 11.8 gm/dL (13.0-17.0)
[2018-01-26 08:21] LABS: Prothrombin Time 10.3 sec (9.8-11.6)
[2018-01-26] MEDS ORDERED: Gadobutrol PF 10 MMOL/10 ML Vial (for RAD) IV.SIG ONE (08:51)
[2018-01-26] MEDS: Famotidine PF Inj 20 MG/2 ML Vial IV.PUSH SCH ×2 (09:34→23:16)
[2018-01-26] MEDS: Senna/Docusate Sodium 8.6/50 MG Tablet PO SCH ×2 (09:34→23:22)
[2018-01-26] MEDS: Escitalopram 10 MG Tablet PO SCH (09:34)
[2018-01-26] MEDS: Insulin NovoLOG Aspart Correctional Sugar Inj SQ SCH ×4 (09:35→23:28)
--- NOTE | 2018-01-26 11:18 | P.PNOP ---
Subjective Interval history: Pt laying in bed, Admits pain was well controlled. went for post operative MRI this AM. Physical Exam Vital signs: Vital Signs 01/25/18 12:00 01/25/18 16:00 01/25/18 20:00 Temperature 99.0 F 97.8 F 98.0 F Pulse Rate 52 L 60 55 L Respiratory Rate 24 13 15 Blood Pressure 106/61 123/74 121/70 Pulse Oximetry 96 96 95 01/26/18 02:00 01/26/18 08:00 01/26/18 09:47 Temperature 97.6 F 98.1 F Pulse Rate 54 L 66 Respiratory Rate 17 18 Blood Pressure 115/69 143/79 H Pulse Oximetry 96 96 96 Intake & Output 01/25/18 01/26/18 01/26/18 18:59 06:59 18:59 Intake Total 2000 / 2000 480 / 480 Output Total 900 / 900 300 / 300 Balance 1100 / 1100 180 / 180 Weight 96.4 kg Intake: IV 1000 / 1000 NS Inj 1,000 ML @ 84 mls/hr IV. 1000 / 1000 CONT .[id number] [facility] Rx#:[id number] Oral 1000 / 1000 480 / 480 Output: Urine 900 / 900 300 / 300 Other: # Voids 3 Narrative: Dressing dry and intact.Tender to palpation with mild swelling around incision site and anterior thigh. Appropriate range of motion expected post operatively. Freely able to move distal digits. No calf pain. Negative Jacoby's sign. Good cap refill. 2+ pedal pulses. Neurovascular intact. Results - Labs CBC & Chem 7: 01/26/18 05:49 01/25/18 03:08 Laboratory Results - last 24 hr 01/25/18 01/25/18 01/25/18 14:10 16:20 21:16 Hgb Hct PT INR POC Glucose 330 H 211 H 239 H 01/26/18 01/26/18 01/26/18 05:49 05:49 08:09 Hgb 11.8 L Hct 34.4 L PT 10.3 INR 1.0 POC Glucose 165 H Microbiology 01/23/18 23:10 Blood - Peripheral Aerobic Blood Culture - Preliminary No growth in 3 days 01/23/18 23:10 Blood - Peripheral Anaerobic Blood Culture - Preliminary No growth in 3 days 01/23/18 23:00 Blood - Peripheral Aerobic Blood Culture - Preliminary No growth in 3 days 01/23/18 23:00 Blood - Peripheral Anaerobic Blood Culture - Preliminary No growth in 3 days - Procedures Left thigh lateral compartment fasciotomy 01/24/18 Assessment and Plan - Problem List (1) Hematoma of left thigh Code(s): S70.12XA - Contusion of left thigh, initial encounter Status: Acute Qualifiers: Encounter type: initial encounter Qualified Code(s): S70.12XA - Contusion of left thigh, initial encounter - Assessment and Plan POD #2 Left thigh lateral compartment fasciotomy Ortho status stable Coumadin for DVT prophylaxis No change dressing - reinforce edges with tegaderm D/C drain Progress rehab, w/b as tolerated. Clear for d/c from orthopedic standpoint once medically cleared
--- NOTE | 2018-01-26 13:31 | MR ---
EXAM DATE: 01/26/2018 8:57 AM EDT AGE/SEX: 57 years / Male INDICATIONS: Compartment syndrome. Post Fasciotomy of left thigh. CLINICAL DATA: This is the patient's subsequent encounter. Patient reports that signs and symptoms h ave been present for 3 days and indicates a pain score of 3/10. MEDICAL/SURGICAL HISTORY: Diabetes. Hypertension. . Fasciotomy. Aortic valve replacement. Le ft hand surgery. COMPARISON: No prior exams available for comparison. TECHNIQUE: Multiplanar, multisequence MRI examination was performed without and with 8 ml Gadavis t (gadobutrol) contrast as single exam dose. FINDINGS: There is a significant amount of edema throughout the left upper leg. At the level of the mid and dis adri third of the distal femur there is a oval mass measuring 5.1 x 2.2 cm across. Its at least 5 cm i n cephalocaudad height embedded within the vastus intermedialis muscle laterally. There is significan t amount of surrounding edema. There are some central T1 increased signal suspicious for an evolving hematoma. At the level of the hematoma there is a 2.6 cm fascial defect I suspect postsurgical along the neon tube bender ior lateral thigh. The fascial defect allows the vastus lateralis to herniate laterally. There is act ually very little edema within the vastus lateralis itself. The majority of edema is within the vastu s intermedialis and even the vastus medialis proximally. There is a moderate joint effusion the knee. There is mild patellar chondromalacia. CONCLUSION: 1. There is a significant amount of edema remaining in the vastus intermedius and vastus medialis mu scles. The fasciotomy creating a 2.5 cm defect does remove some pressure of the vastus lateralis marquez natalya that muscle shows very little edema itself. 2. Residual hematoma in the lateral aspect of the lower thigh measuring up to 5.1 x 2.2 cm across. 3. Moderate joint effusion Electronically signed by: Antonino Guo MD 01/26/2018 1:30 PM EDT
--- NOTE | 2018-01-26 13:51 | P.PNIM ---
Subjective Interval history: No new complaints from patient. Drain removed. Coumadin has been resumed at home doses. Following INR, patient not yet therapeutic. Monitoring for any recurrence of bleeding or blood loss. Physical Exam Vital signs: Vital Signs 01/25/18 16:00 01/25/18 20:00 01/26/18 02:00 Temperature 97.8 F 98.0 F 97.6 F Pulse Rate 60 55 L 54 L Respiratory Rate 13 15 17 Blood Pressure 123/74 121/70 115/69 Pulse Oximetry 96 95 96 01/26/18 08:00 01/26/18 09:47 01/26/18 12:00 Temperature 98.1 F 97.6 F Pulse Rate 66 72 Respiratory Rate 18 18 Blood Pressure 143/79 H 122/72 Pulse Oximetry 96 96 95 Intake & Output 01/25/18 01/26/18 01/26/18 18:59 06:59 18:59 Intake Total 2000 / 2000 480 / 480 Output Total 900 / 900 300 / 300 Balance 1100 / 1100 180 / 180 Weight 96.4 kg Intake: IV 1000 / 1000 NS Inj 1,000 ML @ 84 mls/hr IV. 1000 / 1000 CONT .[id number] [facility] Rx#:[id number] Oral 1000 / 1000 480 / 480 Output: Urine 900 / 900 300 / 300 Other: # Voids 3 Narrative: GENERAL: NAD, A&Ox3 HEAD: Normocephalic. NECK: Supple, trachea midline. No lymphadenopathy. EYES: No scleral icterus. No injection or drainage. CARDIOVASCULAR: Regular rate and rhythm without murmurs, gallops, or rubs. RESPIRATORY: Breath sounds equal bilaterally. No accessory muscle use. GASTROINTESTINAL: Abdomen soft, non-tender, nondistended. MUSCULOSKELETAL: No cyanosis, or edema. Bandaging present at left upper leg. SKIN: Warm and dry. NEURO: No focal neurological deficits. Results - Labs CBC & Chem 7: 01/26/18 05:49 01/25/18 03:08 Laboratory Results - last 24 hr 01/25/18 01/25/18 01/25/18 14:10 16:20 21:16 Hgb Hct PT INR POC Glucose 330 H 211 H 239 H 01/26/18 01/26/18 01/26/18 05:49 05:49 08:09 Hgb 11.8 L Hct 34.4 L PT 10.3 INR 1.0 POC Glucose 165 H 01/26/18 12:17 Hgb Hct PT INR POC Glucose 157 H Microbiology 01/23/18 23:10 Blood - Peripheral Aerobic Blood Culture - Preliminary No growth in 3 days 01/23/18 23:10 Blood - Peripheral Anaerobic Blood Culture - Preliminary No growth in 3 days 01/23/18 23:00 Blood - Peripheral Aerobic Blood Culture - Preliminary No growth in 3 days 01/23/18 23:00 Blood - Peripheral Anaerobic Blood Culture - Preliminary No growth in 3 days - Imaging Impressions Femur MRI 01/26/18 00:00 CONCLUSION: 1. There is a significant amount of edema remaining in the vastus intermedius and vastus medialis muscles. The fasciotomy creating a 2.5 cm defect does remove some pressure of the vastus lateralis however that muscle shows very little edema itself. 2. Residual hematoma in the lateral aspect of the lower thigh measuring up to 5.1 x 2.2 cm across. 3. Moderate joint effusion - Procedures Left thigh lateral compartment fasciotomy 01/24/18 Assessment and Plan - Plan 57-year-old male admitted secondary to left thigh hematoma with compartment syndrome, status post fasciotomy. History of chronic mechanical heart valve. Left upper leg compartment syndrome Status post fasciotomy Continue pain treatments Orthopedic surgeons have signed off Follow-up with orthopedic surgeons as an outpatient Continue PT Continue pain treatments Mechanical heart valve Thoracic aortic aneurysm Coronary artery disease Coumadin has been resumed Follow INR Follow CBC Follow clinically for any signs of bleeding as INR increases Depression Continue baseline treatment Hyperlipidemia Continue present treatment Follow as an outpatient Hypoalbuminemia Regular diet resumed DVT prophylaxis SCDs Coumadin
[2018-01-26] MEDS: Sod Chloride 0.9% Inj 1,000 ML IV.CONT SCH ×2 (15:47→23:25)
[2018-01-27] MEDS: Chlorhexidine Gluconate 2% 1 Pack (2 Cloths) TOPICAL SCH (03:08)
[2018-01-27] MEDS: Insulin NovoLOG Aspart Correctional Sugar Inj SQ SCH ×5 (03:10→20:49)
[2018-01-27] MEDS: Sod Chloride 0.9% Inj 1,000 ML IV.CONT SCH ×3 (04:02→20:28)
[2018-01-27 07:22] LABS: Baso % (Auto) 0.7 % (0.0-2.0); Eos # (Auto) 0.3 th/mm3 (0.0-0.4); Eos % (Auto) 5.4 % (0.0-4.0); Hematocrit 35.4 % (39.0-51.0); Hemoglobin 12.1 gm/dL (13.0-17.0); Mean Corpuscular HGB Conc 34.1 % (32.0-36.0); Mean Corpuscular Volume 85.2 fL (80.0-100.0); Mean Platelet Volume 8.7 fL (7.0-11.0); Mono # (Auto) 0.5 th/mm3 (0.0-0.9); Mono % (Auto) 11.4 % (0.0-8.0); Neut % (Auto) 61.5 % (16.0-70.0); Platelet Count 181 th/mm3 (150-450); Red Blood Count 4.15 mil/mm3 (4.50-5.90); White Blood Count 4.8 th/mm3 (4.0-11.0)
[2018-01-27 07:27] LABS: INR 1.1 Ratio; Prothrombin Time 10.9 sec (9.8-11.6)
[2018-01-27 07:57] LABS: Albumin 3.3 g/dL (3.4-5.0); Anion Gap 8 meq/L (5-15); Aspartate Aminotransferase 13 U/L (15-37); Blood Urea Nitrogen 15 mg/dL (7-18); Calcium 8.6 mg/dL (8.5-10.1); Chloride 105 meq/L (98-107); Glomerular Filtration Rate Greater Than 89 mL/min (>89); Glucose,Random 114 mg/dL (74-106); Potassium 3.7 meq/L (3.5-5.1); Sodium 143 meq/L (136-145)
[2018-01-27 07:59] LABS: Alanine Aminotransferase 19 U/L (12-78); Alkaline Phosphatase 50 U/L (45-117); Total Protein 6.7 g/dL (6.4-8.2)
[2018-01-27] MEDS: Escitalopram 10 MG Tablet PO SCH (10:23)
[2018-01-27] MEDS: Senna/Docusate Sodium 8.6/50 MG Tablet PO SCH ×2 (10:23→20:28)
[2018-01-27] MEDS: Famotidine PF Inj 20 MG/2 ML Vial IV.PUSH SCH (10:24)
[2018-01-27] MEDS ORDERED: Warfarin Consult Pharmacy OTHER PRN (14:39)
--- NOTE | 2018-01-27 14:47 | P.PN ---
Subjective Interval history: Follow-up hematoma left thigh status post fasciotomy. Doing ok INR 1 needs heparin drip but MRI still showed hematoma yesterday. Pt aware and willing to take risk luis fernando CVA. Will dw Ortho and consult heme Physical Exam Vital signs: Vital Signs 01/26/18 16:00 01/26/18 20:00 01/27/18 00:00 Temperature 97.8 F 98.2 F 98.1 F Pulse Rate 108 H 56 L 65 Respiratory Rate 18 21 20 Blood Pressure 120/74 127/68 135/79 Pulse Oximetry 95 98 94 L 01/27/18 03:30 01/27/18 08:00 01/27/18 10:56 Temperature 98.1 F Pulse Rate 67 Respiratory Rate 18 17 Blood Pressure 122/76 Pulse Oximetry 95 94 L 01/27/18 12:00 Temperature 97.7 F Pulse Rate 68 Respiratory Rate 17 Blood Pressure 107/64 Pulse Oximetry 93 L Intake & Output 01/26/18 01/27/18 01/27/18 18:59 06:59 18:59 Intake Total 900 / 900 2000 / 2000 Output Total 475 / 475 Balance 900 / 900 1525 / 1525 Weight 94.9 kg Intake: IV 1200 / 1200 NS Inj 1,000 ML @ 84 mls/hr IV. 1000 / 1000 CONT .[id number] [facility] Rx#:[id number] Oral 900 / 900 800 / 800 Output: Urine 475 / 475 Other: # Voids 4 # Bowel Movements 1 Narrative: GENERAL: NAD, A&Ox3 CARDIOVASCULAR: Regular rate and rhythm without murmurs, gallops, or rubs. RESPIRATORY: Breath sounds equal bilaterally. No accessory muscle use. GASTROINTESTINAL: Abdomen soft, non-tender, nondistended. MUSCULOSKELETAL: No cyanosis, or edema. Bandaging present at left thigh. SKIN: Warm and dry. NEURO: No focal neurological deficits. Results - Labs CBC & Chem 7: 01/27/18 04:47 01/27/18 04:47 Laboratory Results - last 24 hr 01/26/18 01/26/18 01/27/18 15:50 23:19 04:47 WBC RBC Hgb Hct MCV MCH MCHC RDW Plt Count MPV Neut % (Auto) Lymph % (Auto) Grainger % (Auto) Eos % (Auto) Baso % (Auto) Neut # (Auto) Lymph # (Auto) Grainger # (Auto) Eos # (Auto) Baso # (Auto) WBC Differential Differential Comment PT 10.9 INR 1.1 Sodium Potassium Chloride Carbon Dioxide Anion Gap BUN Creatinine Estimated GFR POC Glucose 177 H 271 H Random Glucose Calcium Total Bilirubin AST ALT Alkaline Phosphatase Total Protein Albumin 01/27/18 01/27/18 01/27/18 04:47 04:47 13:20 WBC 4.8 RBC 4.15 L Hgb 12.1 L Hct 35.4 L MCV 85.2 MCH 29.0 MCHC 34.1 RDW 14.0 Plt Count 181 MPV 8.7 Neut % (Auto) 61.5 Lymph % (Auto) 21.0 Grainger % (Auto) 11.4 H Eos % (Auto) 5.4 H Baso % (Auto) 0.7 Neut # (Auto) 3.0 Lymph # (Auto) 1.0 Grainger # (Auto) 0.5 Eos # (Auto) 0.3 Baso # (Auto) 0.0 WBC Differential . Differential Comment Auto diff final PT INR Sodium 143 Potassium 3.7 Chloride 105 Carbon Dioxide 30.0 Anion Gap 8 BUN 15 Creatinine 0.75 Estimated GFR Greater than 89 POC Glucose 326 H Random Glucose 114 H Calcium 8.6 Total Bilirubin 0.4 AST 13 L ALT 19 Alkaline Phosphatase 50 Total Protein 6.7 Albumin 3.3 L Microbiology 01/23/18 23:10 Blood - Peripheral Aerobic Blood Culture - Preliminary No growth in 4 days 01/23/18 23:10 Blood - Peripheral Anaerobic Blood Culture - Preliminary No growth in 4 days 01/23/18 23:00 Blood - Peripheral Aerobic Blood Culture - Preliminary No growth in 4 days 01/23/18 23:00 Blood - Peripheral Anaerobic Blood Culture - Preliminary No growth in 4 days - Imaging ITS Impressions Chest X-Ray 01/24/18 00:00 CONCLUSION: Near atelectasis right midlung. Hand X-Ray 01/24/18 00:00 CONCLUSION: No evidence of recent bony injury. Femur MRI 01/26/18 00:00 CONCLUSION: 1. There is a significant amount of edema remaining in the vastus intermedius and vastus medialis muscles. The fasciotomy creating a 2.5 cm defect does remove some pressure of the vastus lateralis however that muscle shows very little edema itself. 2. Residual hematoma in the lateral aspect of the lower thigh measuring up to 5.1 x 2.2 cm across. 3. Moderate joint effusion - Procedures Left thigh lateral compartment fasciotomy 01/24/18 Assessment and Plan - Plan : 57-year-old male admitted secondary to left thigh hematoma with compartment syndrome, status post fasciotomy. History of chronic mechanical heart valve. Left upper leg compartment syndrome Status post fasciotomy Continue pain treatments Stable Follow-up with orthopedic surgeons as an outpatient Continue PT Continue pain treatments consult regarding narcotic Mechanical heart valve Thoracic aortic aneurysm Coronary artery disease Coumadin has been resumed Follow INR Follow CBC Follow clinically for any signs of bleeding as INR increases INR 1 needs heparin drip but MRI still showed hematoma yesterday. Will discuss with orthopedic surgery. Pt aware and willing to take risk luis fernando CVA. Will consult heme Depression Continue baseline treatment Hyperlipidemia Continue present treatment Follow as an outpatient Hypoalbuminemia Regular diet resumed DVT prophylaxis SCDs Coumadin Discharge Planning: Dc when INR therapeutic
[2018-01-27 16:12] LABS: Activated Partial Thrombo Time 25.9 sec (24.3-30.1); INR 1.1 Ratio
[2018-01-27] MEDS: Heparin Drip 25,000 UNIT/250 ML BAG IV.CONT PRN (18:08)
[2018-01-28] MEDS: Chlorhexidine Gluconate 2% 1 Pack (2 Cloths) TOPICAL SCH (06:04)
[2018-01-28 07:53] LABS: Hematocrit 34.9 % (39.0-51.0); Hemoglobin 11.9 gm/dL (13.0-17.0); Mean Corpuscular HGB Conc 34.1 % (32.0-36.0); Mean Corpuscular Hemoglobin 28.5 pg (27.0-34.0); Mean Corpuscular Volume 83.6 fL (80.0-100.0); Mean Platelet Volume 8.2 fL (7.0-11.0); Platelet Count 186 th/mm3 (150-450); Red Blood Count 4.18 mil/mm3 (4.50-5.90); Red Cell Distribution Width 14.2 % (11.6-17.2); White Blood Count 5.5 th/mm3 (4.0-11.0)
--- NOTE | 2018-01-28 07:58 | P.PNOP ---
Subjective Interval history: Postoperative day #4 fasciotomy left thigh. The patient is awake and alert and answers questions appropriately. Family is at the bedside. He states his pain is improving. Physical Exam Vital signs: Vital Signs 01/27/18 08:00 01/27/18 10:56 01/27/18 12:00 Temperature 98.1 F 97.7 F Pulse Rate 67 68 Respiratory Rate 17 17 Blood Pressure 122/76 107/64 Pulse Oximetry 95 94 L 93 L 01/27/18 16:00 01/27/18 20:17 01/28/18 00:07 Temperature 97.7 F 98.3 F 98.9 F Pulse Rate 63 68 59 L Respiratory Rate 17 18 18 Blood Pressure 138/72 113/67 121/74 Pulse Oximetry 94 L 95 94 L Intake & Output 01/27/18 01/28/18 01/28/18 18:59 06:59 18:59 Intake Total 2100 / 2100 780 / 780 Output Total 850 / 850 1380 / 1380 Balance 1250 / 1250 -600 / -600 Weight 95 kg Intake: IV 1000 / 1000 NS Inj 1,000 ML @ 84 mls/hr IV. 1000 / 1000 CONT .[id number] [facility] Rx#:[id number] Oral 1100 / 1100 780 / 780 Output: Urine 850 / 850 1380 / 1380 Other: # Bowel Movements 1 1 Narrative: The left thigh dressing is dry and intact. There is no erythema or drainage. He has less swelling. There is minimal palpable tenderness. He is able to do a straight leg raise which he could not do preoperatively. He has no calf discomfort and negative Homans sign. Neurologically no focal deficit. Results - Labs CBC & Chem 7: 01/28/18 07:31 01/27/18 04:47 Laboratory Results - last 24 hr 01/27/18 01/27/18 01/27/18 04:47 13:20 15:21 WBC RBC Hgb Hct MCV MCH MCHC RDW Plt Count MPV PT 11.0 INR 1.1 APTT 25.9 Sodium 143 Potassium 3.7 Chloride 105 Carbon Dioxide 30.0 Anion Gap 8 BUN 15 Creatinine 0.75 Estimated GFR Greater than 89 POC Glucose 326 H Random Glucose 114 H Calcium 8.6 Total Bilirubin 0.4 AST 13 L ALT 19 Alkaline Phosphatase 50 Total Protein 6.7 Albumin 3.3 L 01/27/18 01/27/18 01/27/18 18:16 20:16 20:31 WBC RBC Hgb Hct MCV MCH MCHC RDW Plt Count MPV PT INR APTT 28.5 Sodium Potassium Chloride Carbon Dioxide Anion Gap BUN Creatinine Estimated GFR POC Glucose 154 H 230 H Random Glucose Calcium Total Bilirubin AST ALT Alkaline Phosphatase Total Protein Albumin 01/27/18 01/28/18 01/28/18 23:37 07:31 07:34 WBC 5.5 RBC 4.18 L Hgb 11.9 L Hct 34.9 L MCV 83.6 MCH 28.5 MCHC 34.1 RDW 14.2 Plt Count 186 MPV 8.2 PT INR APTT 32.7 H Sodium Potassium Chloride Carbon Dioxide Anion Gap BUN Creatinine Estimated GFR POC Glucose 180 H Random Glucose Calcium Total Bilirubin AST ALT Alkaline Phosphatase Total Protein Albumin Microbiology 01/23/18 23:10 Blood - Peripheral Aerobic Blood Culture - Preliminary No growth in 4 days 01/23/18 23:10 Blood - Peripheral Anaerobic Blood Culture - Preliminary No growth in 4 days 01/23/18 23:00 Blood - Peripheral Aerobic Blood Culture - Preliminary No growth in 4 days 01/23/18 23:00 Blood - Peripheral Anaerobic Blood Culture - Preliminary No growth in 4 days - Procedures Left thigh lateral compartment fasciotomy 01/24/18 Assessment and Plan - Problem List (1) Hematoma of left thigh Code(s): S70.12XA - Contusion of left thigh, initial encounter Status: Acute Qualifiers: Encounter type: initial encounter Qualified Code(s): S70.12XA - Contusion of left thigh, initial encounter (2) Compartment syndrome of thigh Status: Acute - Assessment and Plan POD #2 Left thigh lateral compartment fasciotomy Ortho status stable Coumadin for DVT prophylaxis. Placed on heparin per medical service. No change dressing - reinforce edges with tegaderm Progress rehab, w/b as tolerated. Clear for d/c from orthopedic standpoint once medically cleared It was explained to the patient and his that he may require further surgical management for fascial closure if symptomatic once his condition has cleared.
[2018-01-28 08:03] LABS: INR 1.2 Ratio
[2018-01-28 08:08] LABS: Prothrombin Time 11.8 sec (9.8-11.6)
[2018-01-28] MEDS: Escitalopram 10 MG Tablet PO SCH (09:17)
[2018-01-28] MEDS: Insulin NovoLOG Aspart Correctional Sugar Inj SQ SCH ×4 (09:18→22:27)
[2018-01-28] MEDS: Sod Chloride 0.9% Inj 1,000 ML IV.CONT SCH (09:19)
[2018-01-28] MEDS: Senna/Docusate Sodium 8.6/50 MG Tablet PO SCH ×2 (09:19→22:27)
[2018-01-28] MEDS: Heparin Drip 25,000 UNIT/250 ML BAG IV.CONT PRN (12:31)
--- NOTE | 2018-01-28 12:50 | P.PN ---
Subjective Interval history: Follow-up aVR on anticoagulation. Patient has improving left thigh pain. Had mild headache earlier resolved with Tylenol. No deficits noted. Discussed with family Physical Exam Vital signs: Vital Signs 01/27/18 16:00 01/27/18 20:17 01/28/18 00:07 Temperature 97.7 F 98.3 F 98.9 F Pulse Rate 63 68 59 L Respiratory Rate 17 18 18 Blood Pressure 138/72 113/67 121/74 Pulse Oximetry 94 L 95 94 L 01/28/18 09:45 Temperature Pulse Rate Respiratory Rate Blood Pressure Pulse Oximetry 92 L Intake & Output 01/27/18 01/28/18 01/28/18 18:59 06:59 18:59 Intake Total 2100 / 2100 780 / 780 1250 / 1250 Output Total 850 / 850 1380 / 1380 Balance 1250 / 1250 -600 / -600 1250 / 1250 Weight 95 kg Intake: IV 1000 / 1000 1250 / 1250 Heparin/D5W 25,000 U/250 mL 25, 250 / 250 000 unit In 250 ml @ Per Protocol IV.CONT TITRATE PRN Rx #:[id number] NS Inj 1,000 ML @ 84 mls/hr IV. 1000 / 1000 1000 / 1000 CONT .[id number] [facility] Rx#:[id number] Oral 1100 / 1100 780 / 780 Output: Urine 850 / 850 1380 / 1380 Other: Date of Last Bowel Movement 01/28/18 # Bowel Movements 1 1 Narrative: The left thigh dressing is dry and intact. There is no erythema or drainage. He has less swelling. There is minimal palpable tenderness. He is able to do a straight leg raise which he could not do preoperatively. He has no calf discomfort and negative Homans sign. Neurologically no focal deficit. Results - Labs CBC & Chem 7: 01/28/18 07:31 01/27/18 04:47 Laboratory Results - last 24 hr 01/27/18 01/27/18 01/27/18 13:20 15:21 18:16 WBC RBC Hgb Hct MCV MCH MCHC RDW Plt Count MPV PT 11.0 INR 1.1 APTT 25.9 POC Glucose 326 H 154 H 01/27/18 01/27/18 01/27/18 20:16 20:31 23:37 WBC RBC Hgb Hct MCV MCH MCHC RDW Plt Count MPV PT INR APTT 28.5 32.7 H POC Glucose 230 H 01/28/18 01/28/18 01/28/18 07:31 07:31 07:31 WBC 5.5 RBC 4.18 L Hgb 11.9 L Hct 34.9 L MCV 83.6 MCH 28.5 MCHC 34.1 RDW 14.2 Plt Count 186 MPV 8.2 PT 11.8 H INR 1.2 APTT 34.3 H POC Glucose 01/28/18 01/28/18 07:34 11:44 WBC RBC Hgb Hct MCV MCH MCHC RDW Plt Count MPV PT INR APTT POC Glucose 180 H 201 H Microbiology 01/28/18 06:30 Stool Stool Occult Blood (JEWEL) - Final Hemoccult negative 01/23/18 23:10 Blood - Peripheral Aerobic Blood Culture - Final No growth in 5 days 01/23/18 23:10 Blood - Peripheral Anaerobic Blood Culture - Final No growth in 5 days 01/23/18 23:00 Blood - Peripheral Aerobic Blood Culture - Final No growth in 5 days 01/23/18 23:00 Blood - Peripheral Anaerobic Blood Culture - Final No growth in 5 days - Procedures Left thigh lateral compartment fasciotomy 01/24/18 Assessment and Plan - Plan : 57-year-old male admitted secondary to left thigh hematoma with compartment syndrome, status post fasciotomy. History of chronic mechanical heart valve. Left upper leg compartment syndrome Status post fasciotomy Continue pain treatments Stable Follow-up with orthopedic surgeons as an outpatient, may need closure Continue PT Continue pain treatments counselled regarding narcotic Mechanical heart valve Thoracic aortic aneurysm Coronary artery disease Coumadin has been resumed Follow INR Follow CBC Follow clinically for any signs of bleeding as INR increases Bridging with heparin drip until INR therapeutic. Patient complained of transient mild headache. Patient is nonfocal. We will continue to monitor especially on anticoagulation Depression Continue baseline treatment Hyperlipidemia Continue present treatment Follow as an outpatient Hypoalbuminemia Regular diet resumed DVT prophylaxis SCDs Coumadin Discharge Planning: Dc when INR therapeutic
--- NOTE | 2018-01-28 17:19 | P.DCO ---
- Diagnosis (1) Hematoma of left thigh - Physical Therapy Order: Evaluate and treat, Improve ambulation, Strength and gait training - Certification I have seen patient Giles Isabel on 01/28/18. My clinical findings support the need for the requested home health care services because: Deconditioned with increased weakness I certify that my clinical findings support that this patient is homebound because: Unsteady gait/balance (1) Hematoma of left thigh Qualifiers: Encounter type: initial encounter Qualified Code(s): S70.12XA - Contusion of left thigh, initial encounter
[2018-01-29 07:26] LABS: Hematocrit 34.5 % (39.0-51.0); Hemoglobin 11.8 gm/dL (13.0-17.0); Mean Corpuscular HGB Conc 34.2 % (32.0-36.0); Mean Corpuscular Hemoglobin 28.7 pg (27.0-34.0); Mean Corpuscular Volume 83.9 fL (80.0-100.0); Mean Platelet Volume 9.2 fL (7.0-11.0); Platelet Count 192 th/mm3 (150-450); Red Blood Count 4.11 mil/mm3 (4.50-5.90); White Blood Count 4.1 th/mm3 (4.0-11.0)
[2018-01-29 07:32] LABS: INR 1.3 Ratio; Prothrombin Time 13.4 sec (9.8-11.6)
--- NOTE | 2018-01-29 08:01 | P.CON ---
History of Present Illness Service: Hematology Consult date: 01/29/18 Requesting Physician: Anatoly Cervantes Reason for Consult: Traumatic left thigh hematoma in a patient on therapeutic anticoagulation. Primary Care Provider: Primary CARE physician: Bernardo Srinivasan; [place], [place]. Color Stripper: Dr. Chacon in [place]. Thoracic Surgeon: Aortic valve was replaced in 2008 while the patient was living in [facility]. He does not recall the name of his thoracic/vascular surgeon. Chief Complaint: Pain and swelling of the left thigh. History of Present Illness: Mr. Isabel is a very pleasant 57-year-old man, he is a resident of [place], [place]. The patient was at home with his , he is disabled. The patient reports being in his usual fair state of health up until he fell while trying to get in to his swimming pool, he fell on the lateral aspect of his left thigh. He noted immediate pain but over the next 3 days the patient's left thigh became increasingly swollen and tender. He tells me he got to the point where he was unable to walk or move his left leg. The patient it should be known had been on therapeutic anticoagulation with warfarin for a history of aortic valve replacement, his aortic valve was replaced in 2008 for management of aortic stenosis. He tells me he has a fiberglass valve in place. The patient had maintained an INR between 2.5-3.5 and had been monitored closely by both his data modeling specialist and primary care physician. The patient's brought him into the [facility] emergency department in [place] for further evaluation. The patient at the time of presentation had an INR of 3.7. He underwent evaluation and was assessed to have compartment syndrome of the lateral compartment of the left thigh. He was transferred to [facility] in [facility] for orthopedic surgery evaluation. The patient underwent a left thigh lateral compartment fasciotomy after anticoagulation was temporarily reversed. After undergoing fasciotomy he was initiated on a heparin drip to prevent clot formation around the mechanical aortic valve as well as prevention of arterial thromboembolic events. At the present time he remains on a heparin infusion, his PTT is only slightly elevated over normal, he tells me an orthopedic surgeon told him yesterday that additional surgery may be required for further evacuation of hematoma. The hematology service has been asked to see this gentleman to help balance the risk of aortic valve arterial thrombosis versus continued bleeding within the left thigh. Review of Systems Constitutional: Denies anorexia, Denies body ache(s), Denies night sweats, Denies weakness Eyes: Denies blind spots, Denies change in vision Ears, Nose, Mouth, and Throat: Denies abnormal hearing, Denies change in voice, Denies throat swelling Cardiovascular: Denies chest pain, Denies shortness of breath when lying down, Denies shortness of breath causing sudden awakening Respiratory: Denies change in phlegm color, Denies cough, Denies coughing up blood Gastrointestinal: Denies abdominal pain, Denies bright, red blood in stools Genitourinary: Denies blood in urine Musculoskeletal: Reports abnormal walking Comments: Pain and swelling of the left thigh. Skin/Breast: Denies acne Neurologic: Denies abnormal hearing Psychiatric: Denies abnormal sleep pattern, Denies anxiety Endocrine: Denies cold intolerance Hematologic/Lymphatic: Reports easy bleeding Allergic/Immunologic: Denies GI upset with certain foods PMFSH - History History Provided By: Patient - Medical History Medical History: Medical History (Last Updated 01/29/18 @ 07:49 by Pino Fonseca MD) Chronic anticoagulation Obstructive sleep apnea Thoracic aortic aneurysm Depression Diabetes High cholesterol Hypertension - Surgical History Surgical History: Surgical History (Last Reviewed 01/26/18 @ 08:53 by Comfort Corrigan) Aortic valve replaced - Social History I have reviewed the patient's Social History: Yes - Tobacco History Second Hand Smoke Exposure: No Smoking Status: Former smoker (Smoke while he was in his teenage years.) Tobacco Type: Cigarettes - Alcohol History How Often Do You Have a Drink Containing Alcohol: Never - Substance Use History Substance History: No History of Abuse - Travel History History of Recent Travel: No Medications and Allergies Active Medications: Active Medications Acetaminophen (Tylenol) 650 mg PO Q6H PRN PRN Reason: Fever >100f Last Admin: 01/25/18 16:15 Dose: 650 mg Hydrocodone Bitart/Acetaminophen ([place] 5/325) 1 tab PO Q3H PRN PRN Reason: Pain Scale 3-10 Last Admin: 01/28/18 22:32 Dose: 1 tab Al Hydroxide/Mg Hydroxide (Milk Of Magnesia Liq) 30 ml PO Q12H PRN PRN Reason: Mild Constipation Albuterol (Albuterol Neb (Prn)) 2.5 mg NEB Q2HR NEB PRN PRN Reason: DYSPNEA Atorvastatin Calcium (Lipitor) 40 mg PO DAILY [facility] Last Admin: 01/28/18 09:19 Dose: 40 mg Bisacodyl (Dulcolax Supp) 10 mg RECTAL DAILY PRN PRN Reason: SEVERE CONSITIPATION Dextrose (D50w Vial) 50 ml IV.PUSH UNSCH PRN PRN Reason: PER HYPOGLYCEMIA PROTOCOL Diphenhydramine HCl (Benadryl) 25 mg PO Q6H PRN PRN Reason: ITCHING Escitalopram Oxalate (Lexapro) 5 mg PO DAILY [facility] Last Admin: 01/28/18 09:17 Dose: 5 mg Glucagon (Glucagon Inj) 1 mg OTHER PRN PRN PRN Reason: for Hypoglycemia Protocol Heparin Sodium/Dextrose (Heparin/D5w 25,000 U/250 Ml) 25,000 unit in 250 mls @ 0 mls/hr IV.CONT TITRATE PRN; Protocol PRN Reason: Per Protocol Last Titration: 01/28/18 22:15 Dose: 1,500 units/hr, 15 mls/hr Insulin Aspart (Novolog Insulin Correctional Sugar Inj) 0 unit SQ ACHS CORRECT SUGARS [facility]; Protocol Last Admin: 01/28/18 22:27 Dose: 7 unit Lactulose (Lactulose Liq) 30 ml PO DAILY PRN PRN Reason: SEVERE CONSITIPATION Metoclopramide HCl (Reglan Inj) 5 mg IV.PUSH Q6HR [facility]; Protocol Last Admin: 01/29/18 06:06 Dose: 5 mg Morphine Sulfate (Morphine Inj) 2 mg IV.PUSH Q2H PRN PRN Reason: BREAKTHROUGH PAIN Last Admin: 01/25/18 16:15 Dose: 2 mg Ondansetron HCl (Zofran Inj) 4 mg IV.PUSH Q6H PRN PRN Reason: NAUSEA OR VOMITING Liraglutide [Victoza (2-Derrick] 0.6 Mg) 1 each SQ DAILY [facility] Pharmacy Profile Note (Coumadin Consult Pharmacy) 1 each OTHER UNSCH PRN PRN Reason: PHARMACY DOCUMENTATION Senna/Docusate Sodium (Tanya-Colace) 1 tab PO BID [facility] Last Admin: 01/28/18 22:27 Dose: 1 tab Sennosides (Senokot) 17.2 mg PO Q12H PRN PRN Reason: Moderate Constipation Sodium Chloride (Ns Flush) 2 ml IV.FLUSH PRN PRN PRN Reason: FLUSH AFTER USING IV ACCESS Sodium Chloride (Ns Flush) 2 ml IV.FLUSH BID [facility] Last Admin: 01/28/18 22:32 Dose: 2 ml Sodium Chloride (Ns Flush) 2 ml IV.FLUSH PRN PRN PRN Reason: FLUSH AFTER USING IV ACCESS Temazepam (Restoril) 15 mg PO HS PRN PRN Reason: INSOMNIA Last Admin: 01/28/18 00:35 Dose: 15 mg Warfarin Sodium (Coumadin) 7.5 mg PO Q48H [facility] Last Admin: 01/28/18 15:17 Dose: 7.5 mg Warfarin Sodium (Coumadin) 10 mg PO Q48H [facility] Last Admin: 01/27/18 18:06 Dose: 10 mg Allergies Allergy/AdvReac Type Severity Reaction Status Date / Time No Known Allergies Allergy Unverified 01/23/18 14:30 Home Medications Medication Instructions Recorded Confirmed Type aspirin [Aspir-Low] 81 mg PO DAILY 01/23/18 01/23/18 History atorvastatin 40 mg PO DAILY 01/23/18 01/23/18 History escitalopram oxalate [Lexapro] 5 mg PO DAILY 01/23/18 01/23/18 History liraglutide [Victoza 2-Derrick] 0.6 mg SUB-Q DAILY 01/23/18 01/23/18 History warfarin [Coumadin] 7.5 mg PO Q OTHER DAY 01/23/18 01/23/18 History warfarin [Coumadin] 10 mg PO Q OTHER DAY 01/23/18 01/23/18 History Physical Exam Vital signs: Vital Signs 01/28/18 08:00 01/28/18 09:45 01/28/18 12:00 Temperature 98.5 F 98.5 F Pulse Rate 92 H 67 Respiratory Rate 18 18 Blood Pressure 141/91 H 132/63 Pulse Oximetry 96 92 L 92 L 01/28/18 20:36 01/29/18 00:16 01/29/18 04:50 Temperature 98.0 F 98.6 F Pulse Rate 67 66 Respiratory Rate 18 20 18 Blood Pressure 112/62 130/63 Pulse Oximetry 96 95 Intake & Output 01/28/18 01/29/18 01/29/18 18:59 06:59 18:59 Intake Total 1250 / 1250 1280 / 1280 Output Total 800 / 800 Balance 1250 / 1250 480 / 480 Weight 95 kg Intake: IV 1250 / 1250 500 / 500 Heparin/D5W 25,000 U/250 mL 25, 250 / 250 000 unit In 250 ml @ Per Protocol IV.CONT TITRATE PRN Rx #:[id number] NS Inj 1,000 ML @ 84 mls/hr IV. 1000 / 1000 500 / 500 CONT .[id number] MARCUS Rx#:[id number] Oral 780 / 780 Output: Urine 800 / 800 Other: Date of Last Bowel Movement 01/28/18 01/28/18 Narrative: Middle-aged male, sitting up in bed, appears to be no acute distress. His is at bedside and assists to help answer questions. - Constitutional no acute distress - Routine HEENT Exam Head: Present: normocephalic, atraumatic. Absent: cushingoid faces, abrasion Eye: Present: EOMI, PERRL ENT: Absent: mucous membranes moist - Routine Neck Exam Present: supple, full ROM. Absent: JVD, lymphadenopathy - Routine Respiratory Exam Present: CTA bilaterally. Absent: accessory muscle use, respiratory distress, rhonchi, stridor, wheezes, crackles, distant breath sounds - Routine Cardiovascular Exam Present: RRR, S1, S2, click. Absent: murmur, gallop, rubs, S3 - Routine Abdominal Exam Present: soft. Absent: normoactive bowel sounds, tenderness, distended - Routine Extremities Exam Present: tenderness (Clean appearing surgical dressing along the lateral aspect of the left thigh. No overt bleeding noted. Diameter of the left thigh is slightly larger than the right eye.) - Routine Skin Exam Present: intact - Routine Neurological Exam Present: alert, oriented X3, CN II-XII intact. Absent: sensory deficit, motor deficit - Routine Psychiatric Exam Present: normal affect Assessment and Plan - Plan Mr. Isabel is a very pleasant 57-year-old man who is status post aortic valve replacement with a mechanical (fiberglass) valve placed in 2008. His underlying issue was that of aortic stenosis, he underwent surgery while he was still living in [facility]. Since then he has been on therapeutic anticoagulation with warfarin and has maintained (for the most part) and INR between 2.5 and 3.5. He tells me he in the past has not had any major issues with bleeding related adverse effects. The patient is under the care of Dr. Chacon of cardiology in [place] and under the care of Dr. Srinivasan in [place] ( PCP). The patient suffered an injury to his left lateral thigh; he slipped and fell on his left thigh while trying to get into swimming pool in late December. Within 3 days he developed pain, swelling involving his left thigh and difficulty ambulating due to the symptoms. He presented to [facility] emergency department in [place], was found to have an INR of 3.7 and was assessed to have a left lateral thigh compartment syndrome. Anticoagulation was reversed and the patient underwent a left thigh lateral compartment fasciotomy. Since then he has been maintained on a heparin infusion for management of anticoagulation. Based on what the patient tells me there is possibility he may require additional surgical evacuation of the left thigh lateral compartment. Recommendations: 1. Anticoagulation: Presently on a heparin drip, he is on heparin drip to prevent arterial clotting around the mechanical aortic valve and also to help prevent stroke. There is no evidence to suggest this individual has heparin resistance, I would defer to a data modeling specialist as to what the target PTT ought to be. I would encourage the cardiology service and the orthopedic service to discuss the risks and benefits of holding anticoagulation in the current setting. This patient has no known prothrombotic conditions, this patient has no known bleeding disorders. He bled secondary to trauma while on therapeutic anticoagulation. His INR was slightly above therapeutic levels when he presented, the INR was reversed appropriately. I believe it is out of the scope of my hematology practice to make any specific recommendations with reference to assessing this individual's risk of aortic valve thrombosis and stroke given the presence of a mechanical aortic valve in the absence of a primary hematologic issue which would render this individual at a higher risk of thrombosis independent of his mechanical aortic valve. As far as the pharmacodynamics of heparin are concerned, typically the effects of heparin can be reversed within 3-4 hours of discontinuation should he require additional surgery. Some point he will be clear for discharge and at that point he may be discharged home on therapeutic dose Lovenox with bridging to warfarin, warfarin bridging can be performed in the outpatient setting. With close monitoring with his primary care physician. Thank you for involving me in the care of this patient.
[2018-01-29] MEDS: Escitalopram 10 MG Tablet PO SCH (09:38)
[2018-01-29] MEDS: Senna/Docusate Sodium 8.6/50 MG Tablet PO SCH ×3 (09:39→22:02)
[2018-01-29] MEDS: Insulin NovoLOG Aspart Correctional Sugar Inj SQ SCH ×4 (09:39→22:01)
--- NOTE | 2018-01-29 13:51 | P.PN ---
Subjective Interval history: Follow-up aVR and hematoma left thigh. Improving left thigh pain. Ambulating. He wants to go home. Awaiting follow-up by orthopedic surgery to clarify need for additional surgery and switching anticoagulation to Lovenox so patient can be discharged today. Physical Exam Vital signs: Vital Signs 01/28/18 20:36 01/29/18 00:16 01/29/18 04:50 Temperature 98.0 F 98.6 F Pulse Rate 67 66 Respiratory Rate 18 20 18 Blood Pressure 112/62 130/63 Pulse Oximetry 96 95 01/29/18 08:00 01/29/18 12:00 Temperature 97.9 F 97.8 F Pulse Rate 63 68 Respiratory Rate 18 18 Blood Pressure 121/62 114/65 Pulse Oximetry 94 L 95 Intake & Output 01/28/18 01/29/18 01/29/18 18:59 06:59 18:59 Intake Total 1250 / 1250 1490 / 1490 250 / 250 Output Total 800 / 800 Balance 1250 / 1250 690 / 690 250 / 250 Weight 95 kg Intake: IV 1250 / 1250 710 / 710 250 / 250 Heparin/D5W 25,000 U/250 mL 25, 250 / 250 210 / 210 250 / 250 000 unit In 250 ml @ Per Protocol IV.CONT TITRATE PRN Rx #:[id number] NS Inj 1,000 ML @ 84 mls/hr IV. 1000 / 1000 500 / 500 CONT .[id number] MARCUS Rx#:[id number] Oral 780 / 780 Output: Urine 800 / 800 Other: Date of Last Bowel Movement 01/28/18 01/28/18 01/28/18 Narrative: Middle-aged male, sitting up in bed, appears to be no acute distress. Clear to auscultation regular rate and rhythm Results - Labs CBC & Chem 7: 01/29/18 04:17 01/27/18 04:47 Laboratory Results - last 24 hr 01/28/18 01/28/18 01/28/18 16:41 18:47 22:11 WBC RBC Hgb Hct MCV MCH MCHC RDW Plt Count MPV PT INR APTT 39.4 H POC Glucose 162 H 265 H 01/29/18 01/29/18 01/29/18 04:17 04:17 04:30 WBC 4.1 RBC 4.11 L Hgb 11.8 L Hct 34.5 L MCV 83.9 MCH 28.7 MCHC 34.2 RDW 14.0 Plt Count 192 MPV 9.2 PT 13.4 H INR 1.3 APTT 55.1 H D POC Glucose 01/29/18 01/29/18 01/29/18 08:00 11:14 12:30 WBC RBC Hgb Hct MCV MCH MCHC RDW Plt Count MPV PT INR APTT 44.4 H POC Glucose 172 H 224 H Microbiology 01/28/18 06:30 Stool Stool Occult Blood (JEWEL) - Final Hemoccult negative 01/23/18 23:10 Blood - Peripheral Aerobic Blood Culture - Final No growth in 5 days 01/23/18 23:10 Blood - Peripheral Anaerobic Blood Culture - Final No growth in 5 days 01/23/18 23:00 Blood - Peripheral Aerobic Blood Culture - Final No growth in 5 days 01/23/18 23:00 Blood - Peripheral Anaerobic Blood Culture - Final No growth in 5 days - Procedures Left thigh lateral compartment fasciotomy 01/24/18 Assessment and Plan - Assessment (1) Hematoma of left thigh Code(s): S70.12XA - Contusion of left thigh, initial encounter Status: Acute (2) Anticoagulated on Coumadin Code(s): Z51.81 - Encounter for therapeutic drug level monitoring; Z79.01 - termite renewal inspector (current) use of anticoagulants Status: Chronic (3) Compartment syndrome of thigh Status: Acute - Plan : 57-year-old male admitted secondary to left thigh hematoma with compartment syndrome, status post fasciotomy. History of chronic mechanical heart valve. Left upper leg compartment syndrome Status post fasciotomy Continue pain treatments Stable Follow-up with orthopedic surgeons as an outpatient, may need closure Continue PT Continue pain treatments counselled regarding narcotic Mechanical heart valve Thoracic aortic aneurysm Coronary artery disease Coumadin has been resumed Follow INR Follow CBC Follow clinically for any signs of bleeding as INR increases Bridging with heparin drip until INR therapeutic. Patient complained of transient mild headache. Patient is nonfocal. We will continue to monitor especially on anticoagulation Consider switching to Lovenox if okay with orthopedic surgery to plan for discharge Depression Continue baseline treatment Hyperlipidemia Continue present treatment Follow as an outpatient Hypoalbuminemia Regular diet resumed DVT prophylaxis SCDs Coumadin Discharge Planning: Dc when INR therapeutic or if subcu Lovenox ok by ortho and can be arranged (1) Hematoma of left thigh Qualifiers: Encounter type: initial encounter Qualified Code(s): S70.12XA - Contusion of left thigh, initial encounter
--- NOTE | 2018-01-29 14:57 | P.DCO ---
- Diagnosis (1) Hematoma of left thigh - Physical Therapy Order: Improve ambulation, Strength and gait training - Home Health Nursing Order: Medical education, Medication education-adverse effect (PT/INR daily ), Wound care and dressing changes (monitor for infection left thigh), Nursing assessment with vital signs - Certification I have seen patient Giles Isabel on 01/29/18. My clinical findings support the need for the requested home health care services because: Deconditioned with increased weakness I certify that my clinical findings support that this patient is homebound because: Unsteady gait/balance, Need for psychosocial assistance (1) Hematoma of left thigh Qualifiers: Encounter type: initial encounter Qualified Code(s): S70.12XA - Contusion of left thigh, initial encounter
[2018-01-30] MEDS: Heparin Drip 25,000 UNIT/250 ML BAG IV.CONT PRN (01:02)
[2018-01-30 07:11] LABS: Activated Partial Thrombo Time 57.7 sec (24.3-30.1); INR 1.4 Ratio; Prothrombin Time 13.8 sec (9.8-11.6)
[2018-01-30] MEDS: Enoxaparin Inj 100 MG/ML Syringe SQ SCH ×2 (09:10→09:53)
[2018-01-30] MEDS: Escitalopram 10 MG Tablet PO SCH (09:10)
[2018-01-30] MEDS: Insulin NovoLOG Aspart Correctional Sugar Inj SQ SCH (09:13)
[2018-01-30] MEDS: Senna/Docusate Sodium 8.6/50 MG Tablet PO SCH (09:54)
--- NOTE | 2018-01-30 12:39 | P.DS ---
Date of admission: 01/23/18 19:32 Primary care physician: Bernardo Srinivasan Brief History from admission: 57-year-old male transferred from [facility] emergency department for evaluation of his left thigh. The patient is on Coumadin therapy for a mechanical heart valve. The patient fell 3 days ago injuring his thigh region. He had mild to moderate discomfort at that time. His pain increased last night and this morning. He presented to the emergency department at [place] and there was noted to have lateral compartment swelling. Apparently a compartment pressure measurement was made which was elevated. He was referred to the [facility] for orthopedic consultation for possible compartment syndrome and further evaluation and management. Patient denies pain at rest. He has pain only when trying to elevate the leg or extend his knee. He denies numbness or tingling. DS: Diagnosis - Discharge Diagnosis (1) Hematoma of left thigh Status: Acute (2) Anticoagulated on Coumadin Status: Chronic (3) Compartment syndrome of thigh Status: Acute DS: Medications - Discharge Medications Prescriptions: hydrocodone-acetaminophen 1 tab PO Q4-6H PRN #12 tab PRN Reason: Acute Pain DS: Summary Hospital Course: 57-year-old male admitted secondary to left thigh hematoma with compartment syndrome, status post fasciotomy. History of chronic mechanical heart valve. Left upper leg compartment syndrome Status post fasciotomy Continue pain treatments Stable Follow-up with orthopedic surgeons as an outpatient, may need closure Continue PT Continue pain treatments counselled regarding narcotic Mechanical heart valve stable Thoracic aortic aneurysm Coronary artery disease Coumadin has been resumed Follow INR Follow CBC Follow clinically for any signs of bleeding as INR increases Bridging with heparin drip until INR therapeutic. Patient complained of transient mild headache. Patient is nonfocal. We will continue to monitor especially on anticoagulation Switched to Lovenox cleared by orthopedic surgery Depression Continue baseline treatment Hyperlipidemia Continue present treatment Follow as an outpatient Hypoalbuminemia Regular diet resumed DVT prophylaxis SCDs Coumadin [facility] PT and VN to monitor wd and INR dc Lovenox INR > 2.5 - Time Spent with Patient Total time spent providing and/or coordinating discharge services: Greater than 30 minutes - Quality: VTE Deep Vein Thrombosis/Pulmonary Embolism Present on Admission: Yes Exam Vital signs: Vital Signs 01/29/18 16:00 01/29/18 20:00 01/30/18 00:00 Temperature 97.7 F 98.3 F 98 F Pulse Rate 73 66 62 Respiratory Rate 18 20 20 Blood Pressure 117/69 118/60 117/72 Pulse Oximetry 95 93 L 94 L 01/30/18 08:00 01/30/18 12:00 Temperature 97.8 F 97.7 F Pulse Rate 59 L 59 L Respiratory Rate 19 19 Blood Pressure 114/64 95/57 L Pulse Oximetry 93 L 99 Intake & Output 01/29/18 01/30/18 01/30/18 18:59 06:59 18:59 Intake Total 1450 / 1450 Balance 1450 / 1450 Weight 94.3 kg Intake: IV 250 / 250 Heparin/D5W 25,000 U/250 mL 25, 250 / 250 000 unit In 250 ml @ Per Protocol IV.CONT TITRATE PRN Rx #:[id number] Oral 1200 / 1200 Other: # Voids 3 Date of Last Bowel Movement 01/28/18 # Bowel Movements 1 Narrative: Middle-aged male, sitting up in bed, appears to be no acute distress. Clear to auscultation regular rate and rhythm Fasciotomy wds noninfected left lateral thigh Results Procedures completed during hospitalization: Left thigh lateral compartment fasciotomy 01/24/18 Labs on day of discharge: Labs from last 24 hours 01/30/18 01/30/18 01/29/18 07:26 04:26 19:56 PT 13.8 H INR 1.4 APTT 57.7 H D POC Glucose 186 H 254 H 01/29/18 01/29/18 16:34 12:30 PT INR APTT 44.4 H POC Glucose 302 H - Impressions ITS Impressions Chest X-Ray 01/24/18 00:00 CONCLUSION: Near atelectasis right midlung. Hand X-Ray 01/24/18 00:00 CONCLUSION: No evidence of recent bony injury. Femur MRI 01/26/18 00:00 CONCLUSION: 1. There is a significant amount of edema remaining in the vastus intermedius and vastus medialis muscles. The fasciotomy creating a 2.5 cm defect does remove some pressure of the vastus lateralis however that muscle shows very little edema itself. 2. Residual hematoma in the lateral aspect of the lower thigh measuring up to 5.1 x 2.2 cm across. 3. Moderate joint effusion Discharge Plan - Discharge Disposition Patient Disposition: /Home Health Service - Discharge Condition Condition: Stable - Discharge Order Discharge Orders: Discharge Order (Routine); Ordered 01/29/18 Ordered By: Anatoly Cervantes Orthopedic Clear for Discharge (Routine); Ordered 01/24/18 Ordered By: Elias Morocho - Discharge Details Discharge Comment: dc after i see pt 01/30/18 - Physicians Team Primary Care Provider: Bernardo Srinivasan Attending Provider: Anatoly Cervantes Other Providers: Elias Morocho MD ; Pino Fonseca MD - Rxs /Orders / Referrals /Forms Prescriptions: New enoxaparin [Lovenox] 100 mg/mL Syringe 100 mg Sub-Q Q12HR Qty: 20 RF: 0 hydrocodone-acetaminophen 5-325 mg Tablet 1 tab PO Q4-6H PRN (Reason: Acute Pain) Qty: 12 RF: 0 Continue aspirin [Aspir-Low] 81 mg Tablet,Delayed Release (Dr/Ec) 81 mg PO DAILY atorvastatin 40 mg Tablet 40 mg PO DAILY escitalopram oxalate [Lexapro] 5 mg Tablet 5 mg PO DAILY liraglutide [Victoza 2-Derrick] 0.6 mg/0.1 mL (18 mg/3 mL) Pen Injector 0.6 mg SUB-Q DAILY warfarin [Coumadin] 7.5 mg Tablet 7.5 mg PO Q OTHER DAY warfarin [Coumadin] 10 mg Tablet 10 mg PO Q OTHER DAY Ambulatory Orders / Order Sets / DME: Walker With Front Wheels (1 each) (Routine) Location: Determined by Patient Ordered By: Anatoly Cervantes Prothrombin Time INR (Routine) Location: Determined by Patient Ordered By: Anatoly Cervantes Referrals: Bernardo Srinivasan MD [Primary Care Provider] - See Instructions Elias Morocho MD [Physician] - See Instructions (1-2 wks) - Discharge Instructions Patient Printed Instructions: Incision and Drainage (DC) - Post Discharge Care Plan Care Plan Goals: Your Health Problems: Goals to Promote Your Health: * To prevent worsening of your condition * To maintain your health at the optimal level Directions to Meet Your Goals: * Take your medications as prescribed * Follow your dietary instruction * Follow activity as directed * Keep your appointments as scheduled * Take your immunizations and boosters as scheduled * If your symptoms worsen call your PCP * If no PCP go to Urgent Care or Emergency Room Smoking is dangerous to your health. Avoid second hand smoke. You may reach the 24-hour crisis hotline for domestic abuse at .
== END 2018-01-30 15:45 | disposition home health service (06) ==
LOC: NEDDLT 13:51 → N03 19:32 → N07 01-26 01:44
PROVIDERS: ADMIT Internal Medicine; ATTEND Internal Medicine

== ENCOUNTER 2018-03-10 11:52 | Inpatient (IN) ==
--- NOTE | 2018-03-10 13:03 | ED ---
HPI General Chief Complaint: Extremity Injury, Lower Stated Complaint: lt leg injury x 2 days Time Seen by Provider: 03/10/18 12:34 History of Present Illness HPI Narrative: This is a 57-year-old male who had surgery a month ago for left thigh compartment syndrome. Takes Coumadin for mechanical valve. Patient several days ago had a fall when he stumbled down some stairs and landed on his left leg. This restarted the swelling. Swelling post surgery had been much improved but now it is back to similar levels to when he had the surgery. He complains of left thigh pain and swelling. Pain is worse with weightbearing. He has been using a walker. He was seen here 5 days ago and had CT scanning which showed a suspected hematoma in the lateral part of the vastus intermedius musculature. Also has knee effusion connecting with that suggesting hemarthrosis. Severity is moderate to severe. Symptoms exacerbated by Coumadin use. No alleviating factors. Duration 5 days Related Data Home Medications Medication Instructions Recorded Confirmed warfarin [Coumadin] 7.5 mg PO Q OTHER DAY 01/23/18 03/10/18 warfarin [Coumadin] 10 mg PO Q OTHER DAY 01/23/18 03/10/18 loratadine 10 mg PO DAILY 02/05/18 03/10/18 losartan 25 mg PO DAILY 02/05/18 03/10/18 niacin 500 mg PO DAILY 02/05/18 03/10/18 sertraline 100 mg PO DAILY 02/05/18 03/10/18 sitagliptin-metformin [Janumet] 1 tab PO BID 02/05/18 03/10/18 trazodone 50 mg PO DAILY 02/05/18 03/10/18 aspirin [Aspir-81] 81 mg PO DAILY 03/05/18 03/10/18 atorvastatin [Lipitor] 40 mg PO DAILY 03/05/18 03/10/18 coenzyme Q10 100 mg PO DAILY 03/05/18 03/10/18 fluticasone 1 spray INTRANASAL DAILY 03/05/18 03/10/18 insulin degludec [Tresiba 15 unit SUBCUT DAILY 03/05/18 03/10/18 FlexTouch U-100] liraglutide [Victoza 2-Derrick] 0.6 mg SUBCUT DAILY 03/05/18 03/10/18 temazepam 30 mg PO HS 03/05/18 03/10/18 Previous Rx's Medication Instructions Recorded hydrocodone-acetaminophen 1 tab PO Q6-8H PRN #14 tab 03/05/18 ciprofloxacin HCl 5 drp RIGHT EAR BID 7 Days each 03/08/18 Allergies Allergy/AdvReac Type Severity Reaction Status Date / Time hydromorphone [From Dilaudid] Allergy Severe Anaphylaxis Verified 03/10/18 12:03 Review of Systems ROS: all other systems reviewed are negative [facility] Social History Social History Substance History: No History of Abuse Second Hand Smoke Exposure: No Smoking Status: Former smoker Tobacco Type: Cigarettes How Often Do You Have a Drink Containing Alcohol: Never Hx Recent Travel: No Recent Travel in [facility] within the Last 8 Weeks: No Recent Out of Country Travel within the Last 8 Weeks: No Immunization History Tetanus Immunization: >5 Years Exam Narrative Exam Narrative: GENERAL: Sedated appearing well-developed patient in no apparent distress. SKIN: Focused skin assessment reveals no rash and nodules. Skin is Warm and dry. HEAD: Atraumatic. Normocephalic. EYES: Pupils equal and round. No scleral icterus. No injection or drainage. ENT: No nasal bleeding or discharge. Mucous membranes pink and moist. NECK: Trachea midline. No JVD. CARDIOVASCULAR: Regular rate and rhythm. No murmur appreciated. RESPIRATORY: No accessory muscle use. Clear to auscultation. Breath sounds equal bilaterally. GASTROINTESTINAL: Abdomen soft, non-tender, nondistended. Hepatic and splenic margins not palpable. MUSCULOSKELETAL: There is swelling of the left thigh and effusion at the left knee. Lateral thigh scar is well-healed. Sensation and motor strength seems intact. Posterior tibial pulses readily palpable . no clubbing. No cyanosis. No edema. NEUROLOGICAL: Awake but drowsy, taking Lortab. No obvious cranial nerve deficits. Motor grossly within normal limits. Normal speech. PSYCHIATRIC: Appropriate mood and affect; insight and judgment reasonable. Course Initial Documented Vital Signs Temperature 97.8 F 03/10/18 11:54 Pulse Rate 100 H 03/10/18 11:54 Respiratory Rate 18 03/10/18 11:54 Blood Pressure 113/66 03/10/18 11:54 Pulse Oximetry 99 03/10/18 11:54 Last Documented Vital Signs Temperature 97.8 F 03/10/18 11:54 Pulse Rate 87 03/10/18 14:35 Respiratory Rate 16 03/10/18 14:35 Blood Pressure 96/59 L 03/10/18 14:35 Pulse Oximetry 96 03/10/18 14:35 Medical Decision Making MDM Narrative Medical decision making narrative: 57-year-old male with continued hematoma problems on Coumadin for artificial valve. IV placed and labs sent. I will discuss with Dr. Morocho after review his hemoglobin and INR. Reviewed CT imaging from 5 days ago. Discussed in detail with orthopedist Dr. Morocho. Lab studies reviewed. INR is 2.0 and hemoglobin is baseline at 11.5. Patient will be hospitalized to get this complex issue resolved. He has continued hematoma/hemarthrosis problems but needs his Coumadin for artificial valve. He may have to accept the risk of stroke in the near term and stop his Coumadin for a time until this resolves. Dr. Morocho will consider arthrocentesis of the left knee. No operative intervention is planned at this time. Case reviewed with hospitalist. Medical Screen Exam Complete: Yes Emergency Medical Condition: Yes Differential Diagnosis Differential Diagnosis: Hemarthrosis, hematoma, contusion, compartment syndrome Medical Records Medical records reviewed: Yes I reviewed the patient's medical records. I reviewed his last 2 ER visits as well as his hospitalization history and physical Lab Data Lab results reviewed: Yes I reviewed the patient's lab results. Lab results narrative: INR is 2.0, CBC is baseline Result diagrams: 03/10/18 13:03 03/10/18 13:03 Lab Results 03/10/18 03/10/18 03/10/18 Range/Units 13:03 13:03 13:03 CBC w Diff Auto diff final WBC 5.8 (4.0-11.0) th/mm3 RBC 4.01 L (4.50-5.90) mil/mm3 Hgb 11.5 L (13.0-17.0) gm/dL Hct 33.5 L (39.0-51.0) % MCV 83.6 (80.0-100.0) fL MCH 28.7 (27.0-34.0) pg MCHC 34.4 (32.0-36.0) % RDW 13.1 (11.6-17.2) % Plt Count 261 (150-450) th/mm3 MPV 8.0 (7.0-11.0) fL Neut % (Auto) 67.1 (16.0-70.0) % Lymph % (Auto) 16.9 (9.0-44.0) % [place] % (Auto) 13.3 H (0.0-8.0) % Eos % (Auto) 2.2 (0.0-4.0) % Baso % (Auto) 0.5 (0.0-2.0) % Neut # (Auto) 3.9 (1.8-7.7) th/mm3 Lymph # (Auto) 1.0 (1.0-4.8) th/mm3 [place] # (Auto) 0.8 (0.0-0.9) th/mm3 Eos # (Auto) 0.1 (0.0-0.4) th/mm3 Baso # (Auto) 0.0 (0.0-0.2) th/mm3 WBC Differential . Differential Comment . PT 20.5 H D (9.8-11.6) sec INR 2.0 Ratio Sodium 135 L (136-145) meq/L Potassium 3.8 (3.5-5.1) meq/L Chloride 99 (98-107) meq/L Carbon Dioxide 30.2 (21.0-32.0) meq/L Anion Gap 6 (5-15) meq/L BUN 12 (7-18) mg/dL Creatinine 1.00 (0.60-1.30) mg/dL Estimated GFR 76 L (>89) mL/min Random Glucose 225 H (74-106) mg/dL Calcium 8.6 (8.5-10.1) mg/dL Total Bilirubin 1.1 H (0.2-1.0) mg/dL AST 10 L (15-37) U/L ALT 18 (12-78) U/L Alkaline Phosphatase 64 (45-117) U/L Total Protein 7.7 D (6.4-8.2) g/dL Albumin 3.4 (3.4-5.0) g/dL Discharge Plan Discharge Disposition Patient Disposition: 30 Still Patient Discharge Details Diagnosis: Hematoma of left thigh, Hemarthrosis of knee, left Physicians Team ED Provider: Ayan Trevino Primary Care Provider: Bernardo Srinivasan Rxs /Orders / Referrals /Forms Prescriptions: No Action warfarin [Coumadin] 10 mg Tablet 10 mg PO Q OTHER DAY RF: 0 warfarin [Coumadin] 7.5 mg Tablet 7.5 mg PO Q OTHER DAY RF: 0 atorvastatin [Lipitor] 40 mg Tablet 40 mg PO DAILY RF: 0 aspirin [Aspir-81] 81 mg Tablet,Delayed Release (Dr/Ec) 81 mg PO DAILY RF: 0 temazepam 30 mg Capsule 30 mg PO HS RF: 0 fluticasone 50 mcg/actuation [place],Suspension 1 spray INTRANASAL DAILY RF: 0 liraglutide [Victoza 2-Derrick] 0.6 mg/0.1 mL (18 mg/3 mL) Pen Injector 0.6 mg SUBCUT DAILY RF: 0 coenzyme Q10 100 mg Tablet 100 mg PO DAILY RF: 0 insulin degludec [Tresiba FlexTouch U-100] 100 unit/mL (3 mL) Insulin Pen 15 unit SUBCUT DAILY RF: 0 hydrocodone-acetaminophen 5-325 mg tablet 1 tab PO Q6-8H PRN (Reason: pain) Qty: 14 RF: 0 ciprofloxacin HCl 0.2 % dropperette 5 drp Right Ear BID 7 Days RF: 0 losartan 50 mg Tablet 25 mg PO DAILY RF: 0 trazodone 50 mg Tablet 50 mg PO DAILY RF: 0 sertraline 100 mg Tablet 100 mg PO DAILY RF: 0 niacin 500 mg Tablet 500 mg PO DAILY RF: 0 loratadine 10 mg Tablet 10 mg PO DAILY RF: 0 sitagliptin-metformin [Janumet] 50-500 mg Tablet 1 tab PO BID RF: 0 Discharge Interventions Interventions: Vital Signs Last Done: 03/10/18 14:35 Status ED Status: With Doctor
[2018-03-10 13:17] LABS: Baso % (Auto) 0.5 % (0.0-2.0); Eos # (Auto) 0.1 th/mm3 (0.0-0.4); Eos % (Auto) 2.2 % (0.0-4.0); Hematocrit 33.5 % (39.0-51.0); Hemoglobin 11.5 gm/dL (13.0-17.0); Lymph % (Auto) 16.9 % (9.0-44.0); Mean Corpuscular HGB Conc 34.4 % (32.0-36.0); Mean Corpuscular Hemoglobin 28.7 pg (27.0-34.0); Mean Corpuscular Volume 83.6 fL (80.0-100.0); Mono # (Auto) 0.8 th/mm3 (0.0-0.9); Mono % (Auto) 13.3 % (0.0-8.0); Neut # (Auto) 3.9 th/mm3 (1.8-7.7); Neut % (Auto) 67.1 % (16.0-70.0); Platelet Count 261 th/mm3 (150-450); Red Blood Count 4.01 mil/mm3 (4.50-5.90); Red Cell Distribution Width 13.1 % (11.6-17.2); White Blood Count 5.8 th/mm3 (4.0-11.0)
[2018-03-10 13:30] LABS: Chloride 99 meq/L (98-107); Potassium 3.8 meq/L (3.5-5.1); Sodium 135 meq/L (136-145)
[2018-03-10 13:33] LABS: Albumin 3.4 g/dL (3.4-5.0); Anion Gap 6 meq/L (5-15); Calcium 8.6 mg/dL (8.5-10.1); Carbon Dioxide 30.2 meq/L (21.0-32.0); Prothrombin Time 20.5 sec (9.8-11.6)
[2018-03-10 13:34] LABS: Blood Urea Nitrogen 12 mg/dL (7-18); Glucose,Random 225 mg/dL (74-106)
[2018-03-10 13:37] LABS: Alanine Aminotransferase 18 U/L (12-78); Aspartate Aminotransferase 10 U/L (15-37); Glomerular Filtration Rate 76 mL/min (>89)
[2018-03-10 13:38] LABS: Total Protein 7.7 g/dL (6.4-8.2)
[2018-03-10 13:39] LABS: Alkaline Phosphatase 64 U/L (45-117)
[2018-03-10] MEDS ORDERED: Dextrose 50% in Water 50 ML Vial IV.PUSH PRN (15:40)
--- NOTE | 2018-03-10 15:40 | P.HPIM ---
History of Present Illness Primary Care Physician: Bernardo Srinivasan Chief Complaint: left thigh/ knee pain History of Present Illness: patient is a 57 y/o male with history of left lower extremity compartment syndrome- s/p fasciotomy last month, with mechanical heart valve-on Coumadin, who presented to ER with left thigh/knee pain. he says that he fell five days ago and landed on his left side after which he started to have worsening pain to the left thigh and knee.pain was moderate to severe in intensity.his says that his INR was over 5 yesterday and he didn't take his coumadin yesterday. Inpatient Certification: I certify that the inpatient services were ordered in accordance with Medicare regulations governing the order. This includes certification that hospital inpatient services are reasonable and necessary and in the case of services not specified as inpatient-only under 42 CFR 419.22(n), that they are appropriately provided as inpatient services in accordance to with the 2-midnight benchmark under 43 CFR 412.3(e) Estimated Total Length of Stay (Days): 2 Plans for Post Hospital Care: Home Review of Systems All other systems reviewed negative except as stated in HPI PMFSH - History History Provided By: Patient - Medical History Medical History: Medical History (Last Reviewed 03/10/18 @ 15:36 by Liban Pyle MD) Obstructive sleep apnea (Acute) Thoracic aortic aneurysm (Acute) Chronic anticoagulation (Acute) Depression (Acute) High cholesterol (Acute) Hypertension (Acute) Diabetes (Acute) - Surgical History Surgical History: Surgical History (Last Reviewed 03/10/18 @ 15:36 by Liban Pyle MD) History of open heart surgery (Acute) Aortic valve replaced (Acute) - Family History Family History: Family History (Last Updated 03/10/18 @ 15:36 by Liban Pyle MD) Other No pertinent family history - Tobacco History Second Hand Smoke Exposure: No Smoking Status: Former smoker Tobacco Type: Cigarettes - Alcohol History How Often Do You Have a Drink Containing Alcohol: Never - Substance Use History Substance History: No History of Abuse - Travel History History of Recent Travel: No Recent Travel in the [place] Within the Last 8 Weeks: No Recent Travel Out of the Country Within the Last 8 Weeks: No - Immunization History Tetanus Immunization: >5 Years Medications and Allergies Active Medications: Active Medications Hydrocodone Bitart/Acetaminophen ([place] 5/325) 1 tab PO Q4H PRN PRN Reason: pain 1-4 Hydrocodone Bitart/Acetaminophen ([place] 5/325) 2 tab PO Q4H PRN PRN Reason: pain 5-7 Atorvastatin Calcium (Lipitor) 40 mg PO DAILY [facility] Fluticasone Propionate (Flonase Nasal [place]) 1 spray EACH NARE DAILY [facility] Loratadine (Claritin) 10 mg PO DAILY [facility] Losartan Potassium (Cozaar) 25 mg PO DAILY [facility] Morphine Sulfate (Morphine Inj) 2 mg IV.PUSH Q4H PRN PRN Reason: pain 8-10 Non-Formulary Medication (Ciprofloxacin Hcl [Ciprofloxacin Hcl]) 5 drp RIGHT EAR BID [facility] Non-Formulary Medication (Insulin Degludec [Tresiba Flextouch U-100]) 15 unit SQ DAILY [facility] Non-Formulary Medication (Niacin [Niacin]) 500 mg PO DAILY [facility] Non-Formulary Medication (Temazepam [Temazepam]) 30 mg PO HS [facility] Sertraline HCl (Zoloft) 100 mg PO DAILY [facility] Trazodone HCl (Desyrel) 50 mg PO DAILY [facility] Allergies Allergy/AdvReac Type Severity Reaction Status Date / Time hydromorphone [From Dilaudid] Allergy Severe Anaphylaxis Verified 03/10/18 12:03 Home Medications Medication Instructions Recorded Confirmed Type warfarin [Coumadin] 7.5 mg PO Q OTHER DAY 01/23/18 03/10/18 History warfarin [Coumadin] 10 mg PO Q OTHER DAY 01/23/18 03/10/18 History loratadine 10 mg PO DAILY 02/05/18 03/10/18 History losartan 25 mg PO DAILY 02/05/18 03/10/18 History niacin 500 mg PO DAILY 02/05/18 03/10/18 History sertraline 100 mg PO DAILY 02/05/18 03/10/18 History sitagliptin-metformin [Janumet] 1 tab PO BID 02/05/18 03/10/18 History trazodone 50 mg PO DAILY 02/05/18 03/10/18 History aspirin [Aspir-81] 81 mg PO DAILY 03/05/18 03/10/18 History atorvastatin [Lipitor] 40 mg PO DAILY 03/05/18 03/10/18 History coenzyme Q10 100 mg PO DAILY 03/05/18 03/10/18 History fluticasone 1 spray INTRANASAL DAILY 03/05/18 03/10/18 History insulin degludec [Tresiba 15 unit SUBCUT DAILY 03/05/18 03/10/18 History FlexTouch U-100] liraglutide [Victoza 2-Derrick] 0.6 mg SUBCUT DAILY 03/05/18 03/10/18 History temazepam 30 mg PO HS 03/05/18 03/10/18 History Exam Vital signs: Vital Signs 03/10/18 11:54 03/10/18 14:35 Temperature 97.8 F Pulse Rate 100 H 87 Respiratory Rate 18 16 Blood Pressure 113/66 96/59 L Pulse Oximetry 99 96 Intake & Output 03/09/18 03/10/18 03/10/18 18:59 06:59 18:59 Weight 92.6 kg - Constitutional no acute distress - Routine HEENT Exam Eye: Present: PERRL - Routine Neck Exam Present: supple - Routine Respiratory Exam Present: CTA bilaterally - Routine Cardiovascular Exam Present: RRR - Routine Abdominal Exam Present: soft - Routine Extremities Exam Comments: left thigh/ left knee is swollen, warm and tender with the scar noted on the lateral aspect of the left thigh. - Routine Neurological Exam Present: alert, oriented X3 Results - Labs CBC & Chem 7: 03/10/18 13:03 03/10/18 13:03 Labs: Short CBC 03/10/18 Range/Units 13:03 WBC 5.8 (4.0-11.0) th/mm3 Hgb 11.5 L (13.0-17.0) gm/dL Hct 33.5 L (39.0-51.0) % Plt Count 261 (150-450) th/mm3 BMP 03/10/18 13:03 Sodium 135 L Potassium 3.8 Chloride 99 Carbon Dioxide 30.2 BUN 12 Creatinine 1.00 Calcium 8.6 Liver Function 03/10/18 Range/Units 13:03 Total Bilirubin 1.1 H (0.2-1.0) mg/dL AST 10 L (15-37) U/L ALT 18 (12-78) U/L Alkaline Phosphatase 64 (45-117) U/L Albumin 3.4 (3.4-5.0) g/dL Caprini VTE Risk Assessment Caprini VTE Risk Assessment: Moderate/High Risk (score >= 2) VTE Pharmacological Exception Reason: High risk for bleeding Caprini Risk Assessment Model: Point Value = 1 Point Value = 2 Point Value = 3 Point Value = 5 Age 41-60 Minor surgery BMI > 25 kg/m2 Swollen legs Varicose veins or History of unexplained or recurrent spontaneous Oral contraceptives or hormone replacement Sepsis (< 1 month) Serious lung disease, including pneumonia (< 1 month) Abnormal pulmonary function Acute myocardial infarction Congestive heart failure (< 1 month) History of inflammatory bowel disease Medical patient at bed rest Age 61-74 Arthroscopic surgery Major open surgery (> 45 min) Laparoscopic surgery (> 45 min) Malignancy Confined to bed (> 72 hours) Immobilizing plaster cast Central venous access Age >= 75 History of VTE Family history of VTE Factor V Leiden Prothrombin [id number] Lupus anticoagulant Anticardiolipin antibodies Elevated serum homocysteine Heparin-induced thrombocytopenia Other congenital or acquired thrombophilia Stroke (< 1 month) Elective arthroplasty Hip, pelvis, or leg fracture Acute spinal cord injury (< 1 month) Prophylaxis Regimen: Total Risk Factor Score Risk Level Prophylaxis Regimen 0-1 Low Early ambulation 2 Moderate Order ONE of the following: *Sequential Compression Device (SCD) *Heparin 5000 units SQ BID 3-4 Higher Order ONE of the following medications: *Heparin 5000 units SQ TID *Enoxaparin/Lovenox 40 mg SQ daily (WT < 150 kg, CrCl > 30 mL/min) *Enoxaparin/Lovenox 30 mg SQ daily (WT < 150 kg, CrCl > 10-29 mL/min) *Enoxaparin/Lovenox 30 mg SQ BID (WT < 150 kg, CrCl > 30 mL/min) AND/OR *Sequential Compression Device (SCD) 5 or more Highest Order ONE of the following medications: *Heparin 5000 units SQ TID (Preferred with Epidurals) *Enoxaparin/Lovenox 40 mg SQ daily (WT < 150 kg, CrCl > 30 mL/min) *Enoxaparin/Lovenox 30 mg SQ daily (WT < 150 kg, CrCl > 10-29 mL/min) *Enoxaparin/Lovenox 30 mg SQ BID (WT < 150 kg, CrCl > 30 mL/min) AND *Sequential Compression Device (SCD) Assessment and Plan - Plan A/P - left thigh/ knee hematoma- after a fall- patient underwent left thigh fasciotomy last month will hold Coumadin for now- will consult ortho surgery ( )- continue with pain control. -mechanical heart valve; hold coumadin as noted above- will resume after seen and cleared by ortho. -hypertension; resume home meds -diabetes mellitus; resume home insulin regimen- start on accu-check with SSI -DVT prophylaxis; Coumadin on hold due to left leg hematoma. Discussed Condition With: ER physician and the patient.
[2018-03-10] MEDS: Sod Chloride 0.9% Inj 1,000 ML IV.CONT SCH (16:27)
[2018-03-10] MEDS: Morphine Sulfate Inj 2 MG/ML Vial IV.PUSH PRN ×2 (16:27→20:36)
[2018-03-10] MEDS ORDERED: Lidocaine 2%/Epinephrine 1:200,000 PF Inj 20 ML Vial INFILTRATN ONE (17:17)
--- NOTE | 2018-03-10 17:47 | P.CONOP ---
[facility] Orthopedics Consult Note - [facility] Consult date: 03/10/18 Requesting physician: Liban Pyle Consult reason: other (Evaluation of left lower extremity hematoma and hemarthrosis) Chief complaint: L thigh hematoma, L knee hemarthrosis Narrative: This 57-year-old male who is well-known to me presented to the ED today with increased pain and swelling of his left lower extremity. The patient's history dates back approximately 4 weeks when he was referred from [place] for evaluation of left thigh compartment syndrome. He had no neurological findings however because of persistent pain and swelling he underwent fasciotomy at that time. The patient was subsequent discharged and was progressing although slowly until he fell 3 days ago. He has had increased pain and swelling of the thigh and knee since that time. He has been to the emergency department in [place] and presented here today. He underwent x-ray evaluation as well as a CT scan which showed some residual hematoma in the thigh as well as a large hemarthrosis. The patient is having difficulty ambulating and was admitted for pain control and orthopedic consultation requested. Review of Systems Reviewed and otherwise negative as per history of present illness PMFSH - History History Provided By: Patient - Medical History Medical History: Medical History (Last Reviewed 03/10/18 @ 15:36 by Liban Pyle MD) Obstructive sleep apnea (Acute) Thoracic aortic aneurysm (Acute) Chronic anticoagulation (Acute) Depression (Acute) High cholesterol (Acute) Hypertension (Acute) Diabetes (Acute) - Surgical History Surgical History: Surgical History (Last Reviewed 03/10/18 @ 15:36 by Liban Pyle MD) History of open heart surgery (Acute) Aortic valve replaced (Acute) - Family History Family History: Family History (Last Updated 03/10/18 @ 15:36 by Liban Pyle MD) Other No pertinent family history - Tobacco History Second Hand Smoke Exposure: No Smoking Status: Former smoker Tobacco Type: Cigarettes - Alcohol History How Often Do You Have a Drink Containing Alcohol: Never - Substance Use History Substance History: No History of Abuse - Travel History History of Recent Travel: No Recent Travel in the [place] Within the Last 8 Weeks: No Recent Travel Out of the Country Within the Last 8 Weeks: No - Immunization History Tetanus Immunization: >5 Years Medications and Allergies Active Medications: Active Medications Hydrocodone Bitart/Acetaminophen ([place] 5/325) 1 tab PO Q4H PRN PRN Reason: pain 1-4 Hydrocodone Bitart/Acetaminophen ([place] 5/325) 2 tab PO Q4H PRN PRN Reason: pain 5-7 Atorvastatin Calcium (Lipitor) 40 mg PO DAILY [facility] Dextrose (D50w Vial) 50 ml IV.PUSH UNSCH PRN PRN Reason: PER HYPOGLYCEMIA PROTOCOL Fluticasone Propionate (Flonase Nasal [place]) 1 spray EACH NARE DAILY [facility] Glucagon (Glucagon Inj) 1 mg OTHER PRN PRN PRN Reason: for Hypoglycemia Protocol Sodium Chloride (Ns Inj) 1,000 mls @ 84 mls/hr IV.CONT .[id number] [facility] Last Admin: 03/10/18 16:27 Dose: 84 mls/hr Insulin Aspart (Novolog Insulin Correctional Sugar Inj) 0 unit SQ ACHS [facility]; Protocol Lidocaine/Epinephrine (Xylocaine/Epi Mpf 2%-1:200,000 Inj) 20 ml INFILTRATN ONCE ONE Stop: 03/10/18 17:18 Loratadine (Claritin) 10 mg PO DAILY [facility] Losartan Potassium (Cozaar) 25 mg PO DAILY [facility] Morphine Sulfate (Morphine Inj) 2 mg IV.PUSH Q4H PRN PRN Reason: pain 8-10 Last Admin: 03/10/18 16:27 Dose: 2 mg Niacin (Slo-Niacin) 500 mg PO DAILY [facility] Patient's Own:Cipro Otic Drop 0.2% Hcl[ Ciprofloxacin]5 Drops 0 each RIGHT EAR BID [facility] Patient's Own: ( Insulin Degludec [ Tresiba Flextouch U- 100] 15 Unit) 0 each SQ DAILY [facility] Sertraline HCl (Zoloft) 100 mg PO DAILY [facility] Temazepam (Restoril) 30 mg PO HS [facility] Trazodone HCl (Desyrel) 50 mg PO DAILY [facility] Allergies Allergy/AdvReac Type Severity Reaction Status Date / Time hydromorphone [From Dilaudid] Allergy Severe Anaphylaxis Verified 03/10/18 12:03 Home Medications Medication Instructions Recorded Confirmed Type warfarin [Coumadin] 7.5 mg PO Q OTHER DAY 01/23/18 03/10/18 History warfarin [Coumadin] 10 mg PO Q OTHER DAY 01/23/18 03/10/18 History loratadine 10 mg PO DAILY 02/05/18 03/10/18 History losartan 25 mg PO DAILY 02/05/18 03/10/18 History niacin 500 mg PO DAILY 02/05/18 03/10/18 History sertraline 100 mg PO DAILY 02/05/18 03/10/18 History sitagliptin-metformin [Janumet] 1 tab PO BID 02/05/18 03/10/18 History trazodone 50 mg PO DAILY 02/05/18 03/10/18 History aspirin [Aspir-81] 81 mg PO DAILY 03/05/18 03/10/18 History atorvastatin [Lipitor] 40 mg PO DAILY 03/05/18 03/10/18 History coenzyme Q10 100 mg PO DAILY 03/05/18 03/10/18 History fluticasone 1 spray INTRANASAL DAILY 03/05/18 03/10/18 History insulin degludec [Tresiba 15 unit SUBCUT DAILY 03/05/18 03/10/18 History FlexTouch U-100] liraglutide [Victoza 2-Derrick] 0.6 mg SUBCUT DAILY 03/05/18 03/10/18 History temazepam 30 mg PO HS 03/05/18 03/10/18 History Exam Vital signs: Vital Signs 03/10/18 11:54 03/10/18 14:35 Temperature 97.8 F Pulse Rate 100 H 87 Respiratory Rate 18 16 Blood Pressure 113/66 96/59 L Pulse Oximetry 99 96 Intake & Output 03/09/18 03/10/18 03/10/18 18:59 06:59 18:59 Weight 92.6 kg - Routine Extremities Exam Comments: There is mild to moderate swelling of the thigh. It is not tense. There is a large joint effusion. His examination is limited secondary to pain. He has difficulty with straight leg raise. He has restricted range of motion of the knee. There is no erythema. The previous lateral thigh incision line is well- healed. There is no calf swelling or palpable tenderness and a negative Homans sign. Neurologically no focal deficit. He has good capillary refill and sensation as well as pulses distally. Results - Labs Result Diagrams: 03/10/18 13:03 03/10/18 13:03 Labs: Laboratory Results - last 24 hr 03/10/18 03/10/18 03/10/18 13:03 13:03 13:03 CBC w Diff Auto diff final WBC 5.8 RBC 4.01 L Hgb 11.5 L Hct 33.5 L MCV 83.6 MCH 28.7 MCHC 34.4 RDW 13.1 Plt Count 261 MPV 8.0 Neut % (Auto) 67.1 Lymph % (Auto) 16.9 [place] % (Auto) 13.3 H Eos % (Auto) 2.2 Baso % (Auto) 0.5 Neut # (Auto) 3.9 Lymph # (Auto) 1.0 [place] # (Auto) 0.8 Eos # (Auto) 0.1 Baso # (Auto) 0.0 WBC Differential . Differential Comment . PT 20.5 H D INR 2.0 Sodium 135 L Potassium 3.8 Chloride 99 Carbon Dioxide 30.2 Anion Gap 6 BUN 12 Creatinine 1.00 Estimated GFR 76 L POC Glucose Random Glucose 225 H Calcium 8.6 Total Bilirubin 1.1 H AST 10 L ALT 18 Alkaline Phosphatase 64 Total Protein 7.7 D Albumin 3.4 03/10/18 16:57 CBC w Diff WBC RBC Hgb Hct MCV MCH MCHC RDW Plt Count MPV Neut % (Auto) Lymph % (Auto) [place] % (Auto) Eos % (Auto) Baso % (Auto) Neut # (Auto) Lymph # (Auto) [place] # (Auto) Eos # (Auto) Baso # (Auto) WBC Differential Differential Comment PT INR Sodium Potassium Chloride Carbon Dioxide Anion Gap BUN Creatinine Estimated GFR POC Glucose 165 H Random Glucose Calcium Total Bilirubin AST ALT Alkaline Phosphatase Total Protein Albumin Assessment and Plan - Problem List (1) Hematoma of left thigh Code(s): S70.12XA - Contusion of left thigh, initial encounter Status: Acute Qualifiers: Encounter type: initial encounter Qualified Code(s): S70.12XA - Contusion of left thigh, initial encounter (2) Hemarthrosis of knee, left Code(s): M25.062 - Hemarthrosis, left knee Status: Acute (3) Chronic anticoagulation Code(s): Z79.01 - superintendent terminal (current) use of anticoagulants Status: Acute - Assessment and Plan The findings were discussed with the patient and his . It appears the majority of his symptomatology is related to the hemarthrosis. This was aspirated of approximately 70 cc of bloody return. A sterile dressing was applied. Ice may be of benefit for the next 48 hours. The patient was encouraged in straight leg raise, gentle range of motion exercises and quad setting exercises. He can weight-bear to tolerance. Consider physical therapy if the patient is having difficulty on his own. He can be discharged from an orthopedic standpoint with follow-up as needed on an outpatient basis. Date of procedure: 03/10/18 Pre-op diagnosis: Hemarthrosis left knee Post-op diagnosis: same Procedure: Left knee aspiration Anesthesia: local Surgeon: Elias Morocho Pathology: none sent Condition: stable Disposition: no change (Under sterile technique, the knee was aspirated of approximately 70 cc of bloody return. A sterile dressing was applied. The patient tolerated procedure well.)
[2018-03-10] MEDS: Insulin NovoLOG Aspart Correctional Sugar Inj SQ SCH ×2 (17:51→23:39)
[2018-03-10] MEDS ORDERED: Temazepam 15 MG Capsule PO SCH (21:00)
[2018-03-10] MEDS: [UNRECOGNIZED DRUG - OTHER] RIGHT EAR SCH (23:38)
[2018-03-10] MEDS: CIPROFLOXACIN RIGHT EAR SCH (23:38)
[2018-03-11] MEDS: Morphine Sulfate Inj 2 MG/ML Vial IV.PUSH PRN (03:59)
[2018-03-11] MEDS: Sod Chloride 0.9% Inj 1,000 ML IV.CONT SCH (06:27)
[2018-03-11] MEDS: CIPROFLOXACIN RIGHT EAR SCH (08:42)
[2018-03-11] MEDS: Insulin NovoLOG Aspart Correctional Sugar Inj SQ SCH ×2 (08:42→11:51)
[2018-03-11] MEDS: [UNRECOGNIZED DRUG - OTHER] RIGHT EAR SCH (08:42)
[2018-03-11] MEDS ORDERED: Sertraline 100 MG Tablet PO SCH (09:00)
[2018-03-11] MEDS ORDERED: Loratadine 10 MG Tablet PO SCH (09:00)
[2018-03-11] MEDS ORDERED: traZODone 50 MG Tablet PO SCH (09:00)
[2018-03-11] MEDS ORDERED: INSULIN DEGLUDEC 15 UNIT SQ SCH (09:00)
--- NOTE | 2018-03-11 09:19 | P.PNIM ---
Subjective Interval history: f/u; hemarthrosis looks more comfortable today. pain is better. no other complaints. Physical Exam Vital signs: Vital Signs 03/10/18 11:54 03/10/18 14:35 03/10/18 16:00 Temperature 97.8 F 99.4 F Pulse Rate 100 H 87 83 Respiratory Rate 18 16 17 Blood Pressure 113/66 96/59 L 124/79 Pulse Oximetry 99 96 95 03/10/18 20:00 03/11/18 00:00 03/11/18 04:00 Temperature 99 F 99.5 F 98.7 F Pulse Rate 84 84 78 Respiratory Rate 20 20 20 Blood Pressure 114/77 119/76 108/72 Pulse Oximetry 99 96 96 Intake & Output 03/10/18 03/11/18 03/11/18 18:59 06:59 18:59 Intake Total 1480 / 1480 Balance 1480 / 1480 Weight 92.6 kg 93.6 kg Intake: IV 1000 / 1000 NS Inj 1,000 ML @ 84 mls/hr IV. 1000 / 1000 CONT .[id number] [facility] Rx#: [id number] Oral 480 / 480 Other: # Voids 2 - Constitutional no acute distress - Routine Respiratory Exam Present: CTA bilaterally - Routine Cardiovascular Exam Present: RRR - Routine Abdominal Exam Present: soft - Routine Extremities Exam Comments: left knee covered with clean dressing. - Routine Neurological Exam Present: alert, oriented X3 Results - Labs CBC & Chem 7: 03/10/18 13:03 03/10/18 13:03 Laboratory Results - last 24 hr 03/10/18 03/10/18 03/10/18 13:03 13:03 13:03 CBC w Diff Auto diff final WBC 5.8 RBC 4.01 L Hgb 11.5 L Hct 33.5 L MCV 83.6 MCH 28.7 MCHC 34.4 RDW 13.1 Plt Count 261 MPV 8.0 Neut % (Auto) 67.1 Lymph % (Auto) 16.9 [place] % (Auto) 13.3 H Eos % (Auto) 2.2 Baso % (Auto) 0.5 Neut # (Auto) 3.9 Lymph # (Auto) 1.0 [place] # (Auto) 0.8 Eos # (Auto) 0.1 Baso # (Auto) 0.0 WBC Differential . Differential Comment . PT 20.5 H D INR 2.0 Sodium 135 L Potassium 3.8 Chloride 99 Carbon Dioxide 30.2 Anion Gap 6 BUN 12 Creatinine 1.00 Estimated GFR 76 L POC Glucose Random Glucose 225 H Calcium 8.6 Total Bilirubin 1.1 H AST 10 L ALT 18 Alkaline Phosphatase 64 Total Protein 7.7 D Albumin 3.4 03/10/18 03/10/18 03/11/18 16:57 23:38 07:53 CBC w Diff WBC RBC Hgb Hct MCV MCH MCHC RDW Plt Count MPV Neut % (Auto) Lymph % (Auto) [place] % (Auto) Eos % (Auto) Baso % (Auto) Neut # (Auto) Lymph # (Auto) [place] # (Auto) Eos # (Auto) Baso # (Auto) WBC Differential Differential Comment PT INR Sodium Potassium Chloride Carbon Dioxide Anion Gap BUN Creatinine Estimated GFR POC Glucose 165 H 257 H 203 H Random Glucose Calcium Total Bilirubin AST ALT Alkaline Phosphatase Total Protein Albumin Assessment and Plan - Plan A/P - left knee hematoma- after a fall- patient underwent left thigh fasciotomy last month ortho consulted- s/p arthrocentesis- feels better today- continue with pain control. -mechanical heart valve; resume coumafin- check INR today-- -hypertension; resumed home meds -diabetes mellitus; resumed home insulin regimen- start on accu-check with SSI -DVT prophylaxis; resume Coumadin Discharge Planning: dc home- pending PT evaluation and INR today.
[2018-03-11 11:02] VITALS: RESP 16
[2018-03-11 13:02] LABS: Hematocrit 29.6 % (39.0-51.0); Hemoglobin 10.1 gm/dL (13.0-17.0); Mean Corpuscular HGB Conc 34.2 % (32.0-36.0); Mean Corpuscular Hemoglobin 28.5 pg (27.0-34.0); Mean Corpuscular Volume 83.2 fL (80.0-100.0); Mean Platelet Volume 8.1 fL (7.0-11.0); Platelet Count 234 th/mm3 (150-450); Red Blood Count 3.56 mil/mm3 (4.50-5.90); Red Cell Distribution Width 13.5 % (11.6-17.2); White Blood Count 4.3 th/mm3 (4.0-11.0)
[2018-03-11 13:27] LABS: INR 1.2 Ratio; Prothrombin Time 12.6 sec (9.8-11.6)
--- NOTE | 2018-03-11 14:06 | P.PNADD ---
Addendum to Inpatient Note Reason for Addendum: Additional Documentation (spoke with earlier today and also his CT surgery. INR is subtherpaeutic but he was cleared by his CT surgery for discharge without bridging. he will see him in the office for repeated INR on Wednesday and this was d/w the patient and his before discharge. he will be discharged home today. of note he was cleared by ortho for anticoagulation.)
--- NOTE | 2018-03-11 14:08 | P.DCO ---
- Physical Therapy Order: Evaluate and treat - Home Health Nursing Order: Signs/symptoms of disease process, Medication education-adverse effect, Nursing assessment with vital signs - Case Management Consult Yes - Certification I have seen patient Giles Isabel on 03/11/18. My clinical findings support the need for the requested home health care services because: Limited mobility due to disease progression I certify that my clinical findings support that this patient is homebound because: Unsteady gait/balance
[2018-03-11 16:32] VITALS: BP 112/66; PULSE 85; TEMP 99.1; O2SAT 94
== END 2018-03-11 17:24 | disposition home health service (06) ==
LOC: PHED 11:52 → PHEDA 15:02 → PH3 16:45
PROVIDERS: ADMIT Internal Medicine; ATTEND Internal Medicine